=== PATIENT | female | born 1930 | race Caucasian/White ===

== ENCOUNTER 2018-05-20 17:23 | Inpatient (IN) ==
--- NOTE | 2018-05-20 17:52 | XR ---
EXAM DATE: 05/20/2018 5:49 PM EST AGE/SEX: 87 years / Female INDICATIONS: Short of breath. Weakness/Confusion. CLINICAL DATA: This is the patient's initial encounter. Patient reports that signs and symptoms have been present for 1 day and indicates a pain score of Nonresponsive. MEDICAL/SURGICAL HISTORY: . Gallstones. . Hysterectomy. COMPARISON: No prior exams available for comparison. FINDINGS: A single AP view of the chest demonstrates the lungs to be symmetrically aerated without evidence of mass, infiltrate or effusion. The cardiomediastinal contours are unremarkable. Osseous structures a re intact. CONCLUSION: No acute intrathoracic disease. Electronically signed by: Jorge A Rollins MD 05/20/2018 5:50 PM EST
--- NOTE | 2018-05-20 17:57 | ED ---
HPI General Chief complaint: Weakness Stated complaint: Weakness/Confusion Time Seen by Provider: 05/20/18 17:30 Source: patient and EMS Mode of arrival: EMS Limitations: no limitations History of Present Illness HPI Narrative: 87 YO F with PMH of DM presents to the ED for evaluation of 3 day history of weakness. Patient lives at home with her and son. They have a home health nurse who sent her to the ED today. Patient complains of generalized weakness. She denies headache, dizziness, chest pain, palpitations , cough, shortness of breath, abdominal pain, nausea, vomiting, dysuria, back pain, musculoskeletal weakness of the legs. She states that she has not had a bowel movement in the last few days. She denies history of melena, hematochezia. She endorses compliance with her daily medications. Per EMS report the patient's son states that she "may have taken too much medication." Related Data Home Medications Medication Instructions Recorded Confirmed furosemide 40 mg PO DAILY 05/20/18 05/20/18 losartan 50 mg PO DAILY 05/20/18 05/20/18 nadolol 20 mg PO DAILY 05/20/18 05/20/18 phenobarbital 32.4 mg PO DAILY 05/20/18 05/20/18 pioglitazone 15 mg PO DAILY 05/20/18 05/20/18 rifaximin [Xifaxan] 550 mg PO DAILY 05/20/18 05/20/18 simvastatin 20 mg PO QPM 05/20/18 05/20/18 ursodiol 300 mg PO BID 05/20/18 05/20/18 Allergies Allergy/AdvReac Type Severity Reaction Status Date / Time No Known Allergies Allergy Verified 04/04/18 09:00 Review of Systems ROS: all other systems reviewed are negative [facility] Medical History Medical History Diabetes (Acute) High cholesterol (Acute) History of stomach cancer (Acute) Liver disease (Acute) Surgical History Surgical History Hx of left mastectomy (Acute) Social History Social History Substance History: No History of Abuse Second Hand Smoke Exposure: No Smoking Status: Never smoker How Often Do You Have a Drink Containing Alcohol: Never Recent Travel in [facility] within the Last 8 Weeks: No Recent Out of Country Travel within the Last 8 Weeks: No Immunization History Tetanus Immunization: >5 Years Exam Narrative Exam Narrative: GENERAL: Well-nourished, well-developed white female no acute distress. Alert a and O x2. She thinks the year is 1997. SKIN: Focused skin assessment warm/dry. HEAD: Atraumatic. Normocephalic. EYES: Pupils equal and round. No scleral icterus. No injection or drainage. ENT: No nasal bleeding or discharge. Mucous membranes pink and moist. NECK: Trachea midline. No JVD. CARDIOVASCULAR: Regular rate and rhythm. No murmur appreciated. RESPIRATORY: No accessory muscle use. Clear to auscultation. Breath sounds equal bilaterally. GASTROINTESTINAL: Abdomen soft, non-tender, nondistended. Hepatic and splenic margins not palpable. MUSCULOSKELETAL: No obvious deformities. No clubbing. No cyanosis. No edema. NEUROLOGICAL: Awake and alert. No obvious cranial nerve deficits. Motor grossly within normal limits. Normal speech. PSYCHIATRIC: Appropriate mood. Course Initial Documented Vital Signs Temperature 98.3 F 05/20/18 17:32 Last Documented Vital Signs Temperature 98.3 F 05/20/18 17:32 Pulse Rate 70 05/20/18 19:03 Respiratory Rate 20 05/20/18 19:03 Blood Pressure 163/74 H 05/20/18 19:03 Pulse Oximetry 97 05/20/18 19:03 Medical Decision Making JOCELYNE Attestation JOCELYNE supervised visit: Yes Attestation: I, Dr. Nicole, have reviewed the advance practice practitioner's documentation and am in agreement, met with the patient face to face, made the diagnosis, and the medical decision making was done by me. *My assessment and Findings: Patient seen and evaluated with PA. Please see PA notes for further details. Patient is here with general weakness. Increased disorientation. Lab work is indicating significant UTI and there is suspicion of sepsis. Cultures were drawn, IV antibiotics were initiated. Planning to admit for further treatment. MDM Narrative Medical decision making narrative: 87-year-old female presents to the ED for evaluation of weakness, disorientation. Patient is alert, oriented x2. She thinks the year is 1997. Vitals reviewed afebrile on presentation. Physical exam without acute findings. UA with evidence of UTI. Leukocytosis of 11.3. Creatinine 1.05. Patient was administered a dose of Zosyn. I discussed the results of the workup as well as the recommendation for admission. Patient's agreeable. I spoke with Dr. Woodson who agrees to accept the patient to the medicine service. Please see medicine notes for disposition. Medical Screen Exam Complete: Yes Emergency Medical Condition: Yes Differential Diagnosis Differential Diagnosis: UTI versus PNA versus metabolic derangement versus other Lab Data Result diagrams: 05/20/18 18:06 05/20/18 18:06 Lab Results 05/20/18 05/20/18 05/20/18 Range/Units 18:06 18:06 18:06 WBC 4.8 (4.0-11.0) th/mm3 RBC 3.37 L (4.00-5.30) mil/mm3 Hgb 11.3 L (11.6-15.3) gm/dL Hct 32.4 L (35.0-46.0) % MCV 96.2 (80.0-100.0) fL MCH 33.5 (27.0-34.0) pg MCHC 34.8 (32.0-36.0) % RDW 16.1 (11.6-17.2) % Plt Count 79 L (150-450) th/mm3 MPV 10.2 (7.0-11.0) fL Prelim Diff (Auto) Slide review pending Neut % (Auto) 74.6 H (16.0-70.0) % Lymph % (Auto) 13.9 (9.0-44.0) % Gonzales % (Auto) 7.4 (0.0-8.0) % Eos % (Auto) 3.4 (0.0-4.0) % Baso % (Auto) 0.7 (0.0-2.0) % Neut # (Auto) 3.6 (1.8-7.7) th/mm3 Lymph # (Auto) 0.7 L (1.0-4.8) th/mm3 Gonzales # (Auto) 0.4 (0.0-0.9) th/mm3 Eos # (Auto) 0.2 (0.0-0.4) th/mm3 Baso # (Auto) 0.0 (0.0-0.2) th/mm3 WBC Differential . Diff Scan Auto diff confirmed Differential Comment . PT 12.1 H (9.8-11.6) sec INR 1.2 Ratio Sodium 145 (136-145) meq/L Potassium 4.6 (3.5-5.1) meq/L Chloride 111 H (98-107) meq/L Carbon Dioxide 26.4 (21.0-32.0) meq/L Anion Gap 8 (5-15) meq/L BUN 39 H (7-18) mg/dL Creatinine 1.05 H (0.50-1.00) mg/dL Estimated GFR 49 L (>89) mL/min Random Glucose 151 H (74-106) mg/dL Calcium 8.5 (8.5-10.1) mg/dL Magnesium 2.1 (1.5-2.5) mg/dL Total Bilirubin 0.8 (0.2-1.0) mg/dL AST 63 H (15-37) U/L ALT 30 (10-53) U/L Alkaline Phosphatase 178 H (45-117) U/L Troponin I Less than 0.02 L (0.02-0.05) ng/mL Total Protein 7.1 (6.4-8.2) g/dL Albumin 2.7 L (3.4-5.0) g/dL Urine Color (Yellw/Straw) Urine Clarity (Clear) Urine pH (5.0-8.5) Ur Specific Goessel (1.002-1.035) Urine Protein (Neg-Trace) mg/dL Urine Glucose (UA) (Negative) mg/dL Urine Ketones (Negative) mg/dL Urine Occult Blood (Negative) Urine Nitrate (Negative) Urine Bilirubin (Negative) Urine Urobilinogen (Less than 2) mg/dL Ur Leukocyte Esterase (Negative) Urine RBC (0-3) /hpf Urine WBC (0-5) /hpf Urine Bacteria (None) /hpf Urine Mucus (Occasional) /lpf Micro UA Comment Ur Microscopic Review Urine Culture Comments Blood Type Blood Type Recheck Antibody Screen 05/20/18 05/20/18 Range/Units 18:06 18:07 WBC (4.0-11.0) th/mm3 RBC (4.00-5.30) mil/mm3 Hgb (11.6-15.3) gm/dL Hct (35.0-46.0) % MCV (80.0-100.0) fL MCH (27.0-34.0) pg MCHC (32.0-36.0) % RDW (11.6-17.2) % Plt Count (150-450) th/mm3 MPV (7.0-11.0) fL Prelim Diff (Auto) Neut % (Auto) (16.0-70.0) % Lymph % (Auto) (9.0-44.0) % Gonzales % (Auto) (0.0-8.0) % Eos % (Auto) (0.0-4.0) % Baso % (Auto) (0.0-2.0) % Neut # (Auto) (1.8-7.7) th/mm3 Lymph # (Auto) (1.0-4.8) th/mm3 Gonzales # (Auto) (0.0-0.9) th/mm3 Eos # (Auto) (0.0-0.4) th/mm3 Baso # (Auto) (0.0-0.2) th/mm3 WBC Differential Diff Scan Differential Comment PT (9.8-11.6) sec INR Ratio Sodium (136-145) meq/L Potassium (3.5-5.1) meq/L Chloride (98-107) meq/L Carbon Dioxide (21.0-32.0) meq/L Anion Gap (5-15) meq/L BUN (7-18) mg/dL Creatinine (0.50-1.00) mg/dL Estimated GFR (>89) mL/min Random Glucose (74-106) mg/dL Calcium (8.5-10.1) mg/dL Magnesium (1.5-2.5) mg/dL Total Bilirubin (0.2-1.0) mg/dL AST (15-37) U/L ALT (10-53) U/L Alkaline Phosphatase (45-117) U/L Troponin I (0.02-0.05) ng/mL Total Protein (6.4-8.2) g/dL Albumin (3.4-5.0) g/dL Urine Color Yellow (Yellw/Straw) Urine Clarity Turbid H (Clear) Urine pH 7.0 (5.0-8.5) Ur Specific Goessel 1.020 (1.002-1.035) Urine Protein 100 H (Neg-Trace) mg/dL Urine Glucose (UA) Negative (Negative) mg/dL Urine Ketones Negative (Negative) mg/dL Urine Occult Blood Small H (Negative) Urine Nitrate Negative (Negative) Urine Bilirubin Negative (Negative) Urine Urobilinogen 4 or greater (Less than 2) mg/dL Ur Leukocyte Esterase Large H (Negative) Urine RBC 2 (0-3) /hpf Urine WBC (0-5) /hpf Urine Bacteria Occasional H (None) /hpf Urine Mucus Few H (Occasional) /lpf Micro UA Comment Cath-culture ind Ur Microscopic Review Not Reportable Urine Culture Comments Cath-cult indicated Blood Type A Positive Blood Type Recheck Required Antibody Screen Negative Imaging Data Radiologist's impression: Chest X-Ray 05/20/18 17:37 CONCLUSION: No acute intrathoracic disease. Discharge Plan Discharge Disposition Patient Disposition: 30 Still Patient Physicians Team ED Provider: Simone Nicole ED Midlevel Provider: Radha Landeros Primary Care Provider: UNKNOWN, Attending Provider: Hammad Woodson Discharge Interventions Interventions: Vital Signs Last Done: 05/20/18 19:03 Status ED Status: Admitted Observation Patient
[2018-05-20 18:21] LABS: Baso % (Auto) 0.7 % (0.0-2.0); Eos # (Auto) 0.2 th/mm3 (0.0-0.4); Eos % (Auto) 3.4 % (0.0-4.0); Hematocrit 32.4 % (35.0-46.0); Hemoglobin 11.3 gm/dL (11.6-15.3); Lymph # (Auto) 0.7 th/mm3 (1.0-4.8); Lymph % (Auto) 13.9 % (9.0-44.0); Mean Corpuscular HGB Conc 34.8 % (32.0-36.0); Mean Corpuscular Hemoglobin 33.5 pg (27.0-34.0); Mean Corpuscular Volume 96.2 fL (80.0-100.0); Mean Platelet Volume 10.2 fL (7.0-11.0); Mono # (Auto) 0.4 th/mm3 (0.0-0.9); Mono % (Auto) 7.4 % (0.0-8.0); Neut # (Auto) 3.6 th/mm3 (1.8-7.7); Neut % (Auto) 74.6 % (16.0-70.0); Red Blood Count 3.37 mil/mm3 (4.00-5.30); Red Cell Distribution Width 16.1 % (11.6-17.2); White Blood Count 4.8 th/mm3 (4.0-11.0)
[2018-05-20 18:28] LABS: Bacteria,Urine Occasional /hpf; Bilirubin,Urine Negative (Negative); Clarity,Urine Turbid (Clear); Color,Urine Yellow (Yellw/Straw); Glucose,Urine (UA) Negative (Negative); Leukocyte Esterase,Urine Large (Negative); Mucus,Urine Few /lpf (Occasional); Nitrite,Urine Negative (Negative); Urobilinogen,Urine 4 or Greater mg/dL (Less than 2)
[2018-05-20] MEDS ORDERED: Piperacil/Tazo 3.375 GM Premix 50 ML IV.SIG ONE (18:30)
[2018-05-20 18:31] LABS: INR 1.2 Ratio; Prothrombin Time 12.1 sec (9.8-11.6)
[2018-05-20 18:50] LABS: Alkaline Phosphatase 178 U/L (45-117); Total Protein 7.1 g/dL (6.4-8.2)
[2018-05-20 18:55] LABS: Platelet Count 79 th/mm3 (150-450)
[2018-05-20 19:01] LABS: Alanine Aminotransferase 30 U/L (10-53); Albumin 2.7 g/dL (3.4-5.0); Anion Gap 8 meq/L (5-15); Aspartate Aminotransferase 63 U/L (15-37); Blood Urea Nitrogen 39 mg/dL (7-18); Calcium 8.5 mg/dL (8.5-10.1); Carbon Dioxide 26.4 meq/L (21.0-32.0); Chloride 111 meq/L (98-107); Glomerular Filtration Rate 49 mL/min (>89); Glucose,Random 151 mg/dL (74-106); Magnesium 2.1 mg/dL (1.5-2.5); Potassium 4.6 meq/L (3.5-5.1); Sodium 145 meq/L (136-145)
[2018-05-20] MEDS ORDERED: Bisacodyl 10 MG Supp RECTAL PRN (19:46)
[2018-05-20] MEDS: Sod Chloride 0.9% Inj 1,000 ML IV.CONT SCH (21:48)
--- NOTE | 2018-05-21 01:11 | P.HPIM ---
History of Present Illness Primary Care Physician: UNKNOWN History of Present Illness: 87-year-old female with a history of diabetes, hyperlipidemia, stomach cancer status post resection in the past, who presents with a one-week history of progressively worsening nonfocal weakness. She denies any chest pain, shortness breath, nausea vomiting. She denies any pain. Denies any fevers chills. Denies any dysuria. Review of Systems All other systems reviewed negative except as stated in HPI PMFSH - History History Provided By: Patient - Medical History Medical History: Medical History (Last Reviewed 05/21/18 @ 00:59 by Hammad Woodson MD) Diabetes High cholesterol History of stomach cancer Liver disease - Surgical History Surgical History: Surgical History (Last Reviewed 05/21/18 @ 00:59 by Hammad Woodson MD) Hx of left mastectomy - Family History Family History: Family History (Last Updated 05/21/18 @ 01:04 by Hammad Woodson MD) Father Pulmonary embolism Mother Cancer - Tobacco History Second Hand Smoke Exposure: No Smoking Status: Never smoker - Alcohol History How Often Do You Have a Drink Containing Alcohol: Never - Substance Use History Substance History: No History of Abuse - Travel History Recent Travel in the [facility] Within the Last 8 Weeks: No Recent Travel Out of the Country Within the Last 8 Weeks: No - Immunization History Tetanus Immunization: >5 Years Medications and Allergies Active Medications: Active Medications Al Hydroxide/Mg Hydroxide (Milk Of Magnesia Liq) 30 ml PO Q12H PRN PRN Reason: Mild Constipation Bisacodyl (Dulcolax Supp) 10 mg RECTAL DAILY PRN PRN Reason: SEVERE CONSITIPATION Ceftriaxone Sodium 1,000 mg/ (Sodium Chloride) 100 mls @ 200 mls/hr IV.SIG Q24H [facility] Last Infusion: 05/20/18 23:10 Dose: Infused Sodium Chloride (Ns Inj) 1,000 mls @ 60 mls/hr IV.CONT .[id number] [facility] Last Admin: 05/20/18 21:48 Dose: 60 mls/hr Lactulose (Lactulose Liq) 30 ml PO DAILY PRN PRN Reason: SEVERE CONSITIPATION Nadolol (Corgard) 20 mg PO DAILY [facility] Phenobarbital (Phenobarbital) 32.4 mg PO DAILY [facility] Pravastatin Sodium (Pravachol) 20 mg PO QPM [facility] Rifaximin (Xifaxan) 550 mg PO DAILY [facility] Sennosides (Senokot) 17.2 mg PO Q12H PRN PRN Reason: Moderate Constipation Ursodiol (Actigall) 300 mg PO BID [facility] Last Admin: 05/20/18 22:40 Dose: 300 mg Allergies Allergy/AdvReac Type Severity Reaction Status Date / Time No Known Allergies Allergy Verified 04/04/18 09:00 Home Medications Medication Instructions Recorded Confirmed Type furosemide 40 mg PO DAILY 05/20/18 05/20/18 History losartan 50 mg PO DAILY 05/20/18 05/20/18 History nadolol 20 mg PO DAILY 05/20/18 05/20/18 History phenobarbital 32.4 mg PO DAILY 05/20/18 05/20/18 History pioglitazone 15 mg PO DAILY 05/20/18 05/20/18 History rifaximin [Xifaxan] 550 mg PO DAILY 05/20/18 05/20/18 History simvastatin 20 mg PO QPM 05/20/18 05/20/18 History ursodiol 300 mg PO BID 05/20/18 05/20/18 History Exam Vital signs: Vital Signs 05/20/18 17:32 05/20/18 17:35 05/20/18 17:40 Temperature 98.3 F Pulse Rate 70 Respiratory Rate 16 Blood Pressure 197/83 H Pulse Oximetry 90 L 94 L 05/20/18 18:40 05/20/18 19:03 05/20/18 20:00 Temperature 98.3 F Pulse Rate 65 70 70 Respiratory Rate 16 20 16 Blood Pressure 163/70 H 163/74 H 143/63 H Pulse Oximetry 99 97 98 05/20/18 23:52 Temperature 98.0 F Pulse Rate 70 Respiratory Rate 16 Blood Pressure 171/72 H Pulse Oximetry 96 Intake & Output 05/20/18 05/20/18 05/21/18 06:59 18:59 06:59 Intake Total 150 / 150 Balance 150 / 150 Weight 72.575 kg 72.575 kg Intake: IV 150 / 150 Zosyn 3.375 GM Premix 50 ML @ 50 / 50 100 mls/hr IV.SIG ONCE ONE Rx#: [id number] Rocephin Inj 1,000 MG In NS Inj 100 / 100 100 ML @ 200 mls/hr IV.SIG Q24H [facility] Rx#:[id number] Other: Weight On Admission 72.575 kg Narrative: GENERAL: Patient lying in bed. Appears comfortable. Alert and oriented x3. SKIN: Warm and dry. HEAD: Atraumatic. Normocephalic. EYES: Pupils equal and round. No scleral icterus. No injection or drainage. ENT: No nasal bleeding or discharge. Mucous membranes pink and moist. NECK: Trachea midline. No JVD. CARDIOVASCULAR: Regular rate and rhythm. RESPIRATORY: No accessory muscle use. Clear to auscultation. Breath sounds equal bilaterally. GASTROINTESTINAL: Abdomen soft, non-tender, nondistended. Hepatic and splenic margins not palpable. MUSCULOSKELETAL: Extremities without clubbing, cyanosis, or edema. No obvious deformities. NEUROLOGICAL: Awake and alert. No obvious cranial nerve deficits. Motor grossly within normal limits. 4 out of 5 muscle strength in the arms and legs. Symmetric. Normal speech. PSYCHIATRIC: Appropriate mood and affect; insight and judgment normal. Results - Labs CBC & Chem 7: 05/20/18 18:06 05/20/18 18:06 Labs: Short CBC 05/20/18 Range/Units 18:06 WBC 4.8 (4.0-11.0) th/mm3 Hgb 11.3 L (11.6-15.3) gm/dL Hct 32.4 L (35.0-46.0) % Plt Count 79 L (150-450) th/mm3 BMP 05/20/18 18:06 Sodium 145 Potassium 4.6 Chloride 111 H Carbon Dioxide 26.4 BUN 39 H Creatinine 1.05 H Calcium 8.5 Cardiac Enzymes 05/20/18 Range/Units 18:06 Troponin I Less than 0.02 L (0.02-0.05) ng/mL Liver Function 05/20/18 Range/Units 18:06 Total Bilirubin 0.8 (0.2-1.0) mg/dL AST 63 H (15-37) U/L ALT 30 (10-53) U/L Alkaline Phosphatase 178 H (45-117) U/L Albumin 2.7 L (3.4-5.0) g/dL Urine 05/20/18 Range/Units 18:07 Urine Color Yellow (Yellw/Straw) Urine Clarity Turbid H (Clear) Urine pH 7.0 (5.0-8.5) Ur Specific [place] 1.020 (1.002-1.035) Urine Protein 100 H (Neg-Trace) mg/dL Urine Glucose (UA) Negative (Negative) mg/dL - Imaging Impressions Chest X-Ray 05/20/18 17:37 CONCLUSION: No acute intrathoracic disease. Caprini VTE Risk Assessment Caprini VTE Risk Assessment: Moderate/High Risk (score >= 2) Caprini Risk Assessment Model: Point Value = 1 Point Value = 2 Point Value = 3 Point Value = 5 Age 41-60 Minor surgery BMI > 25 kg/m2 Swollen legs Varicose veins or History of unexplained or recurrent spontaneous Oral contraceptives or hormone replacement Sepsis (< 1 month) Serious lung disease, including pneumonia (< 1 month) Abnormal pulmonary function Acute myocardial infarction Congestive heart failure (< 1 month) History of inflammatory bowel disease Medical patient at bed rest Age 61-74 Arthroscopic surgery Major open surgery (> 45 min) Laparoscopic surgery (> 45 min) Malignancy Confined to bed (> 72 hours) Immobilizing plaster cast Central venous access Age >= 75 History of VTE Family history of VTE Factor V Leiden Prothrombin [id number] Lupus anticoagulant Anticardiolipin antibodies Elevated serum homocysteine Heparin-induced thrombocytopenia Other congenital or acquired thrombophilia Stroke (< 1 month) Elective arthroplasty Hip, pelvis, or leg fracture Acute spinal cord injury (< 1 month) Prophylaxis Regimen: Total Risk Factor Score Risk Level Prophylaxis Regimen 0-1 Low Early ambulation 2 Moderate Order ONE of the following: *Sequential Compression Device (SCD) *Heparin 5000 units SQ BID 3-4 Higher Order ONE of the following medications: *Heparin 5000 units SQ TID *Enoxaparin/Lovenox 40 mg SQ daily (WT < 150 kg, CrCl > 30 mL/min) *Enoxaparin/Lovenox 30 mg SQ daily (WT < 150 kg, CrCl > 10-29 mL/min) *Enoxaparin/Lovenox 30 mg SQ BID (WT < 150 kg, CrCl > 30 mL/min) AND/OR *Sequential Compression Device (SCD) 5 or more Highest Order ONE of the following medications: *Heparin 5000 units SQ TID (Preferred with Epidurals) *Enoxaparin/Lovenox 40 mg SQ daily (WT < 150 kg, CrCl > 30 mL/min) *Enoxaparin/Lovenox 30 mg SQ daily (WT < 150 kg, CrCl > 10-29 mL/min) *Enoxaparin/Lovenox 30 mg SQ BID (WT < 150 kg, CrCl > 30 mL/min) AND *Sequential Compression Device (SCD) Assessment and Plan - Plan //Generalized weakness -Nonfocal. Likely secondary to UTI. Due to history of cirrhosis, ammonia level pending. Will also check phenobarbital level. //Acute urinary tract infection Urinalysis grossly positive. Start on antibiotics. Follow-up cultures. //Dehydration. BUN 39, creatinine 1.0. Likely secondary to UTI. IV antibiotics. 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 Appears to be chronic, actually better than baseline. Monitor for signs of bleeding. Avoid anticoagulation. SCDs only. //Diabetes mellitus. Insulin sliding scale and diabetic diet. //History of cirrhosis. Chronic. Continue home medications. Discussed Condition With: Patient, nurse, ED physician. H&P: Quality - VTE Deep Vein Thrombosis/Pulmonary Embolism Present on Admission: No
[2018-05-21 09:50] LABS: Baso % (Auto) 0.6 % (0.0-2.0); Eos # (Auto) 0.2 th/mm3 (0.0-0.4); Eos % (Auto) 4.8 % (0.0-4.0); Hematocrit 31.3 % (35.0-46.0); Hemoglobin 10.7 gm/dL (11.6-15.3); Lymph # (Auto) 0.5 th/mm3 (1.0-4.8); Lymph % (Auto) 14.4 % (9.0-44.0); Mean Corpuscular HGB Conc 34.2 % (32.0-36.0); Mean Corpuscular Volume 96.6 fL (80.0-100.0); Mono # (Auto) 0.2 th/mm3 (0.0-0.9); Neut # (Auto) 2.4 th/mm3 (1.8-7.7); Neut % (Auto) 73.2 % (16.0-70.0); Platelet Count 51 th/mm3 (150-450); Red Blood Count 3.24 mil/mm3 (4.00-5.30); Red Cell Distribution Width 15.8 % (11.6-17.2); White Blood Count 3.3 th/mm3 (4.0-11.0)
[2018-05-21 10:17] LABS: Albumin 2.6 g/dL (3.4-5.0); Anion Gap 10 meq/L (5-15); Aspartate Aminotransferase 43 U/L (15-37); Blood Urea Nitrogen 32 mg/dL (7-18); Calcium 8.3 mg/dL (8.5-10.1); Carbon Dioxide 23.1 meq/L (21.0-32.0); Chloride 113 meq/L (98-107); Glomerular Filtration Rate 67 mL/min (>89); Glucose,Random 109 mg/dL (74-106); Potassium 4.1 meq/L (3.5-5.1); Sodium 146 meq/L (136-145)
[2018-05-21 10:23] LABS: Platelet Morphology Normal (Normal)
[2018-05-21 10:24] LABS: Alanine Aminotransferase 27 U/L (10-53); Alkaline Phosphatase 153 U/L (45-117); Total Protein 6.6 g/dL (6.4-8.2)
[2018-05-21] MEDS: rifAXIMin 550 MG Tablet PO SCH (11:03)
[2018-05-21] MEDS: Nadolol 20 MG Tablet PO SCH (11:03)
[2018-05-21] MEDS ORDERED: Sodium Chloride 0.45 % Inj 1,000 ML IV.CONT SCH (15:00)
--- NOTE | 2018-05-21 16:36 | ECG ---
Date Performed: 05/20/2018 Time Performed: 18:17:17 PTAGE: 87 years EKG: Sinus rhythm Since previous tracing, no significant change noted NORMAL ECG PREVIOUS TRACING : 09/24/2015 22.21 DOCTOR: Mira Diop Interpretating Date/Time 05/21/2018 16:36:30
[2018-05-21] MEDS ORDERED: Vancomycin Consult Pharmacy OTHER PRN (19:54)
[2018-05-21] MEDS: Sod Chloride 0.9% Inj 1,000 ML IV.CONT SCH (20:26)
[2018-05-21] MEDS ORDERED: Vancomycin Inj 1,250 MG in Sodium Chlor 0.9% Inj 250 ML IV.SIG ONE (22:00)
--- NOTE | 2018-05-22 08:36 | P.DCO ---
- Diagnosis (1) UTI (urinary tract infection) Status: Acute (2) HTN (hypertension) Status: Acute (3) Physical deconditioning Status: Acute - Physical Therapy Order: Evaluate and treat, Improve ambulation, Strength and gait training - Home Health Nursing Order: Medical education, Medication education-adverse effect - Case Management Consult Yes - Certification I have seen patient Luis Carlos Whitehead on 05/22/18. My clinical findings support the need for the requested home health care services because: Deconditioned with increased weakness I certify that my clinical findings support that this patient is homebound because: Unsteady gait/balance
--- NOTE | 2018-05-22 08:36 | P.PNIM ---
Subjective Interval history: Patient reports she is feeling better today except for persistent weakness. Discussed with family at bedside. Physical Exam Vital signs: Vital Signs 05/21/18 08:52 05/21/18 12:00 05/21/18 15:49 Temperature 97.7 F 97.7 F Pulse Rate 59 L 58 L Respiratory Rate 16 20 Blood Pressure 155/66 H 152/63 H Pulse Oximetry 96 95 97 05/21/18 19:38 05/21/18 22:40 05/21/18 23:30 Temperature 98.1 F 98.4 F Pulse Rate 63 66 Respiratory Rate 16 17 Blood Pressure 158/83 H 141/92 H Pulse Oximetry 97 95 97 05/22/18 03:33 05/22/18 07:41 Temperature 98.0 F 98.3 F Pulse Rate 70 72 Respiratory Rate 18 20 Blood Pressure 164/74 H 173/72 H Pulse Oximetry 96 95 Intake & Output 05/21/18 05/22/18 05/22/18 18:59 06:59 18:59 Intake Total 1000 / 1000 362.5 / 362.5 Balance 1000 / 1000 362.5 / 362.5 Intake: IV 1000 / 1000 362.5 / 362.5 NS Inj 1,000 ML @ 60 mls/hr IV. 1000 / 1000 CONT .[id number] [facility] Rx#:[id number] Vancomycin Inj 1,250 MG In NS 262.5 / 262.5 Inj 250 ML @ 250 mls/hr IV.SIG ONCE ONE Rx#:[id number] Rocephin Inj 1,000 MG In NS Inj 100 / 100 100 ML @ 200 mls/hr IV.SIG Q24H [facility] Rx#:[id number] Narrative: GENERAL: Elderly female in no acute distress CARDIOVASCULAR: Normal rate and regular rhythm without murmurs, gallops, or rubs. RESPIRATORY: Good respiratory efforts. Diminished breath sounds at the bases otherwise clear to auscultation bilaterally. GASTROINTESTINAL: Abdomen soft, non-tender, non-distended. Normal active bowel sounds MUSCULOSKELETAL: Trace bilateral lower extremity edema NEURO: Alert & Oriented x4 to person, place, time, situation. Moves all ext x4 PSYCH: Appropriate mood and affect. - Urinary Catheter Management Straight Cath placed during this visit: yes, but has since been removed by the nurse Reason for continuing: Not indwelling catheter Insertion date: 11/08/18 Insertion time: 18:00 Removal date: 05/20/18 Removal time: 18:01 Results - Labs CBC & Chem 7: 05/21/18 08:58 05/21/18 08:58 Laboratory Results - last 24 hr 05/20/18 05/21/18 05/21/18 18:07 08:57 08:58 WBC 3.3 L RBC 3.24 L Hgb 10.7 L Hct 31.3 L MCV 96.6 MCH 33.0 MCHC 34.2 RDW 15.8 Plt Count 51 L D MPV 9.0 Prelim Diff (Auto) Slide review pending Neut % (Auto) 73.2 H Lymph % (Auto) 14.4 [place] % (Auto) 7.0 Eos % (Auto) 4.8 H Baso % (Auto) 0.6 Neut # (Auto) 2.4 Lymph # (Auto) 0.5 L [place] # (Auto) 0.2 Eos # (Auto) 0.2 Baso # (Auto) 0.0 WBC Differential . Diff Scan Auto diff confirmed Differential Comment . Platelet Estimate Low L Platelet Morphology Normal Sodium Potassium Chloride Carbon Dioxide Anion Gap BUN Creatinine Estimated GFR POC Glucose 111 H Random Glucose Calcium Total Bilirubin AST ALT Alkaline Phosphatase Total Protein Albumin Urine Color Yellow Urine Clarity Turbid H Urine pH 7.0 Ur Specific [place] 1.020 Urine Protein 100 H Urine Glucose (UA) Negative Urine Ketones Negative Urine Occult Blood Small H Urine Nitrate Negative Urine Bilirubin Negative Urine Urobilinogen 4 or greater Ur Leukocyte Esterase Large H Urine RBC 2 Urine WBC Urine Bacteria Occasional H Urine Mucus Few H Micro UA Comment Cath-culture ind Urine Culture Comments Cath-cult indicated 05/21/18 05/21/18 05/22/18 08:58 12:17 07:44 WBC RBC Hgb Hct MCV MCH MCHC RDW Plt Count MPV Prelim Diff (Auto) Neut % (Auto) Lymph % (Auto) [place] % (Auto) Eos % (Auto) Baso % (Auto) Neut # (Auto) Lymph # (Auto) [place] # (Auto) Eos # (Auto) Baso # (Auto) WBC Differential Diff Scan Differential Comment Platelet Estimate Platelet Morphology Sodium 146 H Potassium 4.1 Chloride 113 H Carbon Dioxide 23.1 Anion Gap 10 BUN 32 H Creatinine 0.81 Estimated GFR 67 L POC Glucose 142 H 97 Random Glucose 109 H Calcium 8.3 L Total Bilirubin 0.9 AST 43 H ALT 27 Alkaline Phosphatase 153 H Total Protein 6.6 Albumin 2.6 L Urine Color Urine Clarity Urine pH Ur Specific [place] Urine Protein Urine Glucose (UA) Urine Ketones Urine Occult Blood Urine Nitrate Urine Bilirubin Urine Urobilinogen Ur Leukocyte Esterase Urine RBC Urine WBC Urine Bacteria Urine Mucus Micro UA Comment Urine Culture Comments Microbiology 05/20/18 18:07 Catheterized Urine Urine Culture - Final Proteus mirabilis 05/20/18 17:50 Blood - Peripheral Aerobic Blood Culture - Preliminary No growth in 1 day 05/20/18 17:50 Blood - Peripheral Anaerobic Blood Culture - Preliminary gram positive cocci 05/20/18 17:50 Blood - Peripheral Aerobic Blood Culture - Preliminary No growth in 1 day 05/20/18 17:50 Blood - Peripheral Anaerobic Blood Culture - Preliminary No growth in 1 day Assessment and Plan - Assessment (1) UTI (urinary tract infection) Code(s): N39.0 - Urinary tract infection, site not specified Status: Acute (2) HTN (hypertension) Code(s): I10 - Essential (primary) hypertension Status: Acute (3) Physical deconditioning Code(s): R53.81 - Other malaise Status: Acute - Plan 87-year-old female presented with worsening generalized weakness. Likely secondary to UTI. Generalized weakness -Nonfocal. Likely secondary to UTI. Acute urinary tract infection Urinalysis grossly positive. -Urine culture grew Proteus. - Continue Rocephin. Plan to transition to oral cefuroxime tomorrow. Hypoxemia: Mild. Family reports she has been having issues with fluid overload secondary to liver cirrhosis. She is on Lasix but became dehydrated when she stopped drinking fluid. - Patient has been rehydrated. Concern she is not retaining fluid. - We will give her 1 dose of IV Lasix and resume home Lasix at half the dose 20 mg daily. -Incentive spirometry. Wean off oxygen as tolerated. Dehydration. Resolved with IV fluid. Chronic thrombocytopenia: Likely secondary to liver cirrhosis. Stable. No signs of active bleeding. Continue to monitor. Avoid anticoagulation. SCDs only. Diabetes mellitus. Insulin sliding scale and diabetic diet. History of cirrhosis. Chronic. Continue home medications. Discharge Planning: May need home health versus SNF. PT to reevaluate. Unclear if her will be able to care for her at home as he is in his 90s.
[2018-05-22] MEDS: Nadolol 20 MG Tablet PO SCH (09:49)
[2018-05-22] MEDS: rifAXIMin 550 MG Tablet PO SCH (11:48)
[2018-05-22] MEDS ORDERED: Vancomycin Inj 1,250 MG in Sodium Chlor 0.9% Inj 250 ML IV.SIG ONE (16:00)
[2018-05-22] MEDS: Vancomycin Inj 1,250 MG in Sodium Chlor 0.9% Inj 250 ML IV.SIG SCH (18:00)
[2018-05-22 20:00] LABS: Potassium 4.2 meq/L (3.5-5.1)
[2018-05-23] MEDS: rifAXIMin 550 MG Tablet PO SCH (09:55)
[2018-05-23] MEDS: Furosemide 20 MG Tablet PO SCH (09:56)
[2018-05-23] MEDS: Nadolol 20 MG Tablet PO SCH (09:57)
[2018-05-23 12:27] LABS: Hematocrit 32.6 % (35.0-46.0); Hemoglobin 11.5 gm/dL (11.6-15.3); Mean Corpuscular HGB Conc 35.3 % (32.0-36.0); Mean Corpuscular Hemoglobin 33.8 pg (27.0-34.0); Mean Corpuscular Volume 95.7 fL (80.0-100.0); Mean Platelet Volume 9.4 fL (7.0-11.0); Platelet Count 65 th/mm3 (150-450); White Blood Count 3.9 th/mm3 (4.0-11.0)
[2018-05-23 12:54] LABS: Calcium 7.8 mg/dL (8.5-10.1); Carbon Dioxide 26.8 meq/L (21.0-32.0); Potassium 4.1 meq/L (3.5-5.1)
--- NOTE | 2018-05-23 16:02 | P.PNIM ---
Subjective Interval history: Patient has not been able to get out of bed. Discussed with nursing and PT. She is a maximum assist. She reports severe weakness and right knee pain. She states her osteoarthritis flares up from time to time and she normally use topical pain reliever but does not remember the name Physical Exam Vital signs: Vital Signs 05/22/18 19:20 05/22/18 20:00 05/23/18 00:00 Temperature 98.2 F 98.0 F Pulse Rate 68 75 Respiratory Rate 17 18 Blood Pressure 134/78 159/70 H Pulse Oximetry 98 97 94 L 05/23/18 07:49 05/23/18 09:03 05/23/18 11:52 Temperature 98.0 F 98.3 F Pulse Rate 77 66 Respiratory Rate 12 20 Blood Pressure 155/70 H 150/65 H Pulse Oximetry 91 L 92 L 95 05/23/18 15:45 Temperature 99.0 F Pulse Rate 76 Respiratory Rate 16 Blood Pressure 169/70 H Pulse Oximetry 96 Intake & Output 05/22/18 05/23/18 05/23/18 18:59 06:59 18:59 Intake Total 362.5 / 362.5 Output Total 1300 / 1300 Balance -1300 / -1300 362.5 / 362.5 Intake: IV 362.5 / 362.5 Vancomycin Inj 1,250 MG In NS 262.5 / 262.5 Inj 250 ML @ 250 mls/hr IV.SIG Q24H [facility] Rx#:[id number] Rocephin Inj 1,000 MG In NS Inj 100 / 100 100 ML @ 200 mls/hr IV.SIG Q24H [facility] Rx#:[id number] Output: Urine 1300 / 1300 Other: # Voids 1 Date of Last Bowel Movement 05/20/18 05/23/18 Narrative: GENERAL: Elderly female in no acute distress. Very frail. CARDIOVASCULAR: Normal rate and regular rhythm without murmurs, gallops, or rubs. RESPIRATORY: Good respiratory efforts. Diminished breath sounds at the bases otherwise clear to auscultation bilaterally. GASTROINTESTINAL: Abdomen soft, non-tender, non-distended. Normal active bowel sounds MUSCULOSKELETAL: Right knee diffusely tender to palpation, limited range of motion due to pain. Trace bilateral lower extremity edema NEURO: Alert & Oriented x4 to person, place, time, situation. PSYCH: Appropriate mood and affect. - Urinary Catheter Management Straight Cath placed during this visit: yes, but has since been removed by the nurse Reason for continuing: Not indwelling catheter Insertion date: 05/20/18 Insertion time: 18:00 Removal date: 05/20/18 Removal time: 18:01 Results - Labs CBC & Chem 7: 05/23/18 11:30 05/23/18 11:30 Laboratory Results - last 24 hr 05/22/18 05/22/18 05/23/18 16:57 19:12 11:30 WBC 3.9 L RBC 3.40 L Hgb 11.5 L Hct 32.6 L MCV 95.7 MCH 33.8 MCHC 35.3 RDW 16.0 Plt Count 65 L MPV 9.4 Sodium 143 Potassium 4.2 Chloride 110 H Carbon Dioxide 25.0 Anion Gap 8 BUN 22 H Creatinine 0.88 Estimated GFR 61 L POC Glucose 128 H Random Glucose 105 Calcium 8.0 L 05/23/18 11:30 WBC RBC Hgb Hct MCV MCH MCHC RDW Plt Count MPV Sodium 139 Potassium 4.1 Chloride 106 Carbon Dioxide 26.8 Anion Gap 6 BUN 23 H Creatinine 0.95 Estimated GFR 56 L POC Glucose Random Glucose 164 H Calcium 7.8 L Microbiology 05/20/18 17:50 Blood - Peripheral Aerobic Blood Culture - Preliminary No growth in 3 days 05/20/18 17:50 Blood - Peripheral Anaerobic Blood Culture - Final Staphylococcus epidermidis 05/20/18 17:50 Blood - Peripheral Aerobic Blood Culture - Preliminary No growth in 3 days 05/20/18 17:50 Blood - Peripheral Anaerobic Blood Culture - Preliminary No growth in 3 days Assessment and Plan - Assessment (1) UTI (urinary tract infection) Code(s): N39.0 - Urinary tract infection, site not specified Status: Acute (2) HTN (hypertension) Code(s): I10 - Essential (primary) hypertension Status: Acute (3) Physical deconditioning Code(s): R53.81 - Other malaise Status: Acute - Plan 87-year-old female presented with worsening generalized weakness. Likely secondary to UTI. Generalized weakness/severe physical deconditioning -Nonfocal. Likely secondary to UTI. -Patient will require rehabilitation at a detention facility. Admit to inpatient. She needs 3 midnight stay per Medicare rules. Acute urinary tract infection Urinalysis grossly positive. -Urine culture grew Proteus. - Transition to oral cefuroxime Hypoxemia: Resolved. Family reports she has been having issues with fluid overload secondary to liver cirrhosis. She is on Lasix but became dehydrated when she stopped drinking fluid. -Continue home dose Lasix at half the dose 20 mg daily. -Incentive spirometry. Oxygen has been weaned off. Dehydration. Resolved with IV fluid. Chronic thrombocytopenia: Likely secondary to liver cirrhosis. Stable. No signs of active bleeding. Continue to monitor. Avoid anticoagulation. SCDs only. Diabetes mellitus. Insulin sliding scale and diabetic diet. History of cirrhosis. Chronic. Continue home medications. Discharge Planning: Patient remains severely deconditioned and unable to ambulate. Requires maximal assistance. She needs rehabilitation at a detention facility. Admit to inpatient. Case management following for placement.
[2018-05-23] MEDS: Vancomycin Inj 1,250 MG in Sodium Chlor 0.9% Inj 250 ML IV.SIG SCH (18:25)
[2018-05-24] MEDS: rifAXIMin 550 MG Tablet PO SCH (09:28)
[2018-05-24] MEDS: Nadolol 20 MG Tablet PO SCH (09:28)
[2018-05-24] MEDS: Furosemide 20 MG Tablet PO SCH (09:28)
--- NOTE | 2018-05-24 15:12 | P.PNIM ---
Subjective Interval history: Patient reports persistent right knee pain and weakness. She reports that the pain is similar to her osteoarthritis flare and she usually gets a steroid injection. Physical Exam Vital signs: Vital Signs 05/23/18 15:45 05/23/18 19:58 05/24/18 00:00 Temperature 99.0 F 98.5 F 97.8 F Pulse Rate 76 71 62 Respiratory Rate 16 16 16 Blood Pressure 169/70 H 150/65 H 147/66 H Pulse Oximetry 96 93 L 94 L 05/24/18 04:00 05/24/18 07:13 05/24/18 09:32 Temperature 98.2 F 98.0 F Pulse Rate 67 71 Respiratory Rate 16 16 16 Blood Pressure 162/67 H 124/75 Pulse Oximetry 99 91 L 05/24/18 11:49 Temperature 97.8 F Pulse Rate 63 Respiratory Rate 16 Blood Pressure 154/65 H Pulse Oximetry 92 L Intake & Output 05/23/18 05/24/18 05/24/18 18:59 06:59 18:59 Intake Total 262.5 / 262.5 500 / 500 Output Total 100 / 100 100 / 100 Balance 162.5 / 162.5 400 / 400 Intake: IV 262.5 / 262.5 Vancomycin Inj 1,250 MG In NS 262.5 / 262.5 Inj 250 ML @ 250 mls/hr IV.SIG Q24H [facility] Rx#:[id number] Oral 500 / 500 Output: Urine 100 / 100 100 / 100 Other: Date of Last Bowel Movement 05/23/18 05/23/18 # Bowel Movements 3 Narrative: GENERAL: Elderly female in no acute distress. Very frail. CARDIOVASCULAR: Normal rate and regular rhythm without murmurs, gallops, or rubs. RESPIRATORY: Good respiratory efforts. Diminished breath sounds at the bases otherwise clear to auscultation bilaterally. GASTROINTESTINAL: Abdomen soft, non-tender, non-distended. Normal active bowel sounds MUSCULOSKELETAL: Right knee diffusely tender to palpation, limited range of motion due to pain. Mild effusion. Trace bilateral lower extremity edema NEURO: Alert & Oriented x4 to person, place, time, situation. PSYCH: Appropriate mood and affect. - Urinary Catheter Management Straight Cath placed during this visit: yes, but has since been removed by the nurse Reason for continuing: Not indwelling catheter Insertion date: 05/20/18 Insertion time: 18:00 Removal date: 05/20/18 Removal time: 18:01 Results - Labs CBC & Chem 7: 05/23/18 11:30 05/23/18 11:30 Laboratory Results - last 24 hr 05/23/18 21:53 POC Glucose 131 H Microbiology 05/20/18 17:50 Blood - Peripheral Aerobic Blood Culture - Preliminary No growth in 4 days 05/20/18 17:50 Blood - Peripheral Anaerobic Blood Culture - Preliminary No growth in 4 days 05/20/18 17:50 Blood - Peripheral Aerobic Blood Culture - Preliminary No growth in 4 days 05/20/18 17:50 Blood - Peripheral Anaerobic Blood Culture - Final Staphylococcus epidermidis Assessment and Plan - Assessment (1) UTI (urinary tract infection) Code(s): N39.0 - Urinary tract infection, site not specified Status: Acute (2) HTN (hypertension) Code(s): I10 - Essential (primary) hypertension Status: Acute (3) Physical deconditioning Code(s): R53.81 - Other malaise Status: Acute - Plan 87-year-old female presented with worsening generalized weakness. Likely secondary to UTI. Generalized weakness/severe physical deconditioning -Nonfocal. Likely secondary to UTI and comorbid conditions below -Patient will require short term rehabilitation at a retirement facility. She needs 3 midnight stay per Medicare rules. Acute urinary tract infection Urinalysis grossly positive. -Urine culture grew Proteus. -Completed treatment with Zosyn and cefuroxime. Hypoxemia: Resolved. Family reports she has been having issues with fluid overload secondary to liver cirrhosis. She is on Lasix but became dehydrated when she stopped drinking fluid. -Continue home dose Lasix at half the dose 20 mg daily. -Incentive spirometry. Oxygen has been weaned off. Osteoarthritis flare: Right knee - Will give short course of oral steroid - Change pain medication to Percocet - Encouraged the patient to participate with PT Dehydration. Resolved with IV fluid. Chronic thrombocytopenia: Likely secondary to liver cirrhosis. Stable. No signs of active bleeding. Continue to monitor. Avoid anticoagulation. SCDs only. Diabetes mellitus. Insulin sliding scale and diabetic diet. History of cirrhosis. Chronic. Continue home medications. Continue rifaximin, Lasix. Discharge Planning: Patient remains severely deconditioned and unable to ambulate. Requires maximal assistance. She needs rehabilitation at a retirement facility. Case management following for placement.
[2018-05-24] MEDS ORDERED: Dextrose 50% in Water 50 ML Vial IV.PUSH PRN (16:44)
[2018-05-24] MEDS: predniSONE 20 MG Tablet PO SCH (16:59)
[2018-05-24] MEDS ORDERED: Pharmacy Ordered Lab Info OTHER ONE (17:00)
[2018-05-24] MEDS: Insulin NovoLOG Aspart Correctional Sugar Inj SQ SCH ×2 (17:01→21:37)
[2018-05-25] MEDS: Insulin NovoLOG Aspart Correctional Sugar Inj SQ SCH ×4 (08:03→21:54)
[2018-05-25] MEDS: Furosemide 20 MG Tablet PO SCH (09:40)
[2018-05-25] MEDS: rifAXIMin 550 MG Tablet PO SCH (09:40)
[2018-05-25] MEDS: predniSONE 20 MG Tablet PO SCH (09:40)
[2018-05-25] MEDS: Nadolol 20 MG Tablet PO SCH (09:41)
--- NOTE | 2018-05-25 10:33 | P.PNIM ---
Subjective Interval history: Patient reports she is feeling okay today. She is unable to tell if right knee pain is better. She has not been up with physical therapy yet. Physical Exam Vital signs: Vital Signs 05/24/18 11:49 05/24/18 15:21 05/24/18 21:15 Temperature 97.8 F 98.4 F Pulse Rate 63 71 70 Respiratory Rate 16 16 19 Blood Pressure 154/65 H 179/74 H 124/53 L Pulse Oximetry 92 L 90 L 93 L 05/25/18 02:38 05/25/18 02:41 05/25/18 04:00 Temperature 98.9 F Pulse Rate 70 67 Respiratory Rate 17 18 Blood Pressure 115/56 L 113/56 L Pulse Oximetry 95 95 95 05/25/18 08:23 05/25/18 08:41 Temperature 98.2 F Pulse Rate 66 Respiratory Rate 20 Blood Pressure 122/56 L Pulse Oximetry 95 94 L Intake & Output 05/24/18 05/25/18 05/25/18 18:59 06:59 18:59 Intake Total 620 / 620 Output Total 250 / 250 Balance 370 / 370 Intake: Oral 620 / 620 Output: Urine 100 / 100 Urine/Stool Mix 150 / 150 Other: Date of Last Bowel Movement 05/24/18 05/24/18 # Bowel Movements 1 2 Narrative: GENERAL: Elderly female in no acute distress. Very frail. CARDIOVASCULAR: Normal rate and regular rhythm without murmurs, gallops, or rubs. RESPIRATORY: Good respiratory efforts. Diminished breath sounds at the bases otherwise clear to auscultation bilaterally. GASTROINTESTINAL: Abdomen soft, non-tender, non-distended. Normal active bowel sounds MUSCULOSKELETAL: Right knee diffusely tender to palpation, limited range of motion due to pain. Effusion seems to have resolved. Trace bilateral lower extremity edema NEURO: Alert & Oriented x4 to person, place, time, situation. PSYCH: Appropriate mood and affect. - Urinary Catheter Management Straight Cath placed during this visit: yes, but has since been removed by the nurse Reason for continuing: Not indwelling catheter Insertion date: 05/20/18 Insertion time: 18:00 Removal date: 05/20/18 Removal time: 18:01 Results - Labs CBC & Chem 7: 05/23/18 11:30 05/25/18 10:51 Laboratory Results - last 24 hr 05/24/18 05/24/18 05/24/18 16:47 17:01 21:18 POC Glucose 134 H 167 H Vancomycin Trough 23.9 H 05/25/18 08:02 POC Glucose 146 H Vancomycin Trough Microbiology 05/20/18 17:50 Blood - Peripheral Aerobic Blood Culture - Preliminary No growth in 4 days 05/20/18 17:50 Blood - Peripheral Anaerobic Blood Culture - Preliminary No growth in 4 days 05/20/18 17:50 Blood - Peripheral Aerobic Blood Culture - Preliminary No growth in 4 days 05/20/18 17:50 Blood - Peripheral Anaerobic Blood Culture - Final Staphylococcus epidermidis Assessment and Plan - Assessment (1) UTI (urinary tract infection) Code(s): N39.0 - Urinary tract infection, site not specified Status: Acute (2) HTN (hypertension) Code(s): I10 - Essential (primary) hypertension Status: Acute (3) Physical deconditioning Code(s): R53.81 - Other malaise Status: Acute - Plan 87-year-old female presented with worsening generalized weakness. Likely secondary to UTI. Generalized weakness/severe physical deconditioning -Nonfocal. Likely secondary to UTI and comorbid conditions below -Patient will require short term rehabilitation at a group home facility. She needs 3 midnight stay per Medicare rules. Daughter will come into town tomorrow to assist with placement. Acute urinary tract infection -Urine culture grew Proteus. -Completed treatment with Zosyn and cefuroxime. Hypoxemia: Resolved. Family reports she has been having issues with fluid overload secondary to liver cirrhosis. She is on Lasix but became dehydrated when she stopped drinking fluid. -Continue home dose Lasix at half the dose 20 mg daily. -Incentive spirometry. Wean off oxygen. Osteoarthritis flare: Right knee -Patient is on short course of oral steroid - Change pain medication to Percocet - Encouraged the patient to participate with PT Dehydration. Resolved with IV fluid. Chronic thrombocytopenia: Likely secondary to liver cirrhosis. Stable. No signs of active bleeding. Continue to monitor. Avoid anticoagulation. SCDs only. Diabetes mellitus. Insulin sliding scale and diabetic diet. History of cirrhosis. Chronic. Continue home medications. Continue rifaximin, Lasix, nadolol. Discharge Planning: Patient remains severely deconditioned and unable to ambulate. She needs rehabilitation at a group home facility. Case management following for placement.
[2018-05-25 12:19] LABS: Calcium 7.5 mg/dL (8.5-10.1); Carbon Dioxide 22.3 meq/L (21.0-32.0); Potassium 4.5 meq/L (3.5-5.1)
[2018-05-25] MEDS ORDERED: hydrALAZINE 25 MG Tablet PO ONE (20:54)
--- NOTE | 2018-05-26 07:34 | P.PNIM ---
Subjective Interval history: Follow up UTI and placement for discharge. Patient seen and examined, lying in bed comfortably, does complain of some abdominal pain and one bout of vomiting. Will add Protonix and Maalox. Continue Zofran. VSS. Afebrile. Awaiting labs this am. Physical Exam Vital signs: Vital Signs 05/25/18 08:23 05/25/18 08:41 05/25/18 11:54 Temperature 98.2 F 98.6 F Pulse Rate 66 61 Respiratory Rate 20 18 Blood Pressure 122/56 L 153/69 H Pulse Oximetry 95 94 L 96 05/25/18 11:55 05/25/18 12:00 05/25/18 16:00 Temperature 97.7 F 98.7 F Pulse Rate 71 65 Respiratory Rate 20 20 Blood Pressure 164/70 H 187/79 H Pulse Oximetry 96 95 95 05/25/18 19:30 05/25/18 20:00 05/25/18 22:47 Temperature 94.3 F L Pulse Rate 67 Respiratory Rate 18 Blood Pressure 181/69 H 146/65 H Pulse Oximetry 96 94 L 05/26/18 00:00 Temperature 98.1 F Pulse Rate 71 Respiratory Rate 18 Blood Pressure 170/67 H Pulse Oximetry 96 Intake & Output 05/25/18 05/26/18 05/26/18 18:59 06:59 18:59 Intake Total 720 / 720 120 / 120 Output Total 1201 / 1201 600 / 600 Balance -481 / -481 -480 / -480 Weight 62.2 kg Intake: Oral 720 / 720 120 / 120 Output: Urine 1200 / 1200 600 / 600 Stool Other: Date of Last Bowel Movement 05/25/18 05/25/18 Narrative: GENERAL: Elderly female in no acute distress. Very frail. CARDIOVASCULAR: Normal rate and regular rhythm without murmurs, gallops, or rubs. RESPIRATORY: Good respiratory efforts. Diminished breath sounds at the bases otherwise clear to auscultation bilaterally. GASTROINTESTINAL: Abdomen soft, non-tender, non-distended. Normal active bowel sounds MUSCULOSKELETAL: Right knee diffusely tender to palpation, limited range of motion due to pain. Trace bilateral lower extremity edema. No pain to palpation. NEURO: Alert & Oriented x4 to person, place, time, situation. PSYCH: Appropriate mood and affect. - Urinary Catheter Management Straight Cath placed during this visit: yes, but has since been removed by the nurse Reason for continuing: Not indwelling catheter Insertion date: 05/20/18 Insertion time: 18:00 Removal date: 05/20/18 Removal time: 18:01 Results - Labs CBC & Chem 7: 05/23/18 11:30 05/25/18 10:51 Laboratory Results - last 24 hr 05/25/18 05/25/18 05/25/18 08:02 10:51 17:05 Sodium 131 L Potassium 4.5 Chloride 100 Carbon Dioxide 22.3 Anion Gap 9 BUN 45 H Creatinine 1.38 H Estimated GFR 36 L POC Glucose 146 H 193 H Random Glucose 208 H Calcium 7.5 L 05/25/18 05/26/18 21:49 07:28 Sodium Potassium Chloride Carbon Dioxide Anion Gap BUN Creatinine Estimated GFR POC Glucose 232 H 134 H Random Glucose Calcium Microbiology 05/20/18 17:50 Blood - Peripheral Aerobic Blood Culture - Final No growth in 5 days 05/20/18 17:50 Blood - Peripheral Anaerobic Blood Culture - Final No growth in 5 days 05/20/18 17:50 Blood - Peripheral Aerobic Blood Culture - Final No growth in 5 days 05/20/18 17:50 Blood - Peripheral Anaerobic Blood Culture - Final Staphylococcus epidermidis Assessment and Plan - Assessment (1) UTI (urinary tract infection) Code(s): N39.0 - Urinary tract infection, site not specified Status: Acute (2) HTN (hypertension) Code(s): I10 - Essential (primary) hypertension Status: Acute (3) Physical deconditioning Code(s): R53.81 - Other malaise Status: Acute - Plan 87-year-old female presented with worsening generalized weakness. Likely secondary to UTI. Generalized weakness/severe physical deconditioning -Nonfocal. Likely secondary to UTI and comorbid conditions below -Patient will require short term rehabilitation at a [facility] facility. She needs 3 midnight stay per Medicare rules. -Daughter will come into town today to assist with placement. Acute urinary tract infection Acute kidney injury Dehydration, resolved. -Urine culture grew Proteus. -Completed treatment with Zosyn and cefuroxime. -Creatinine went up to 1.38. Awaiting labs today. Nausea and vomiting Abdominal -Started last evening overnight. One bout of emesis, brown in color. -Added Protonix and Maalox. Continue Zofran. -Will continue to assess. -Monitor this am labs. Hypoxemia, resolving. -Family reports she has been having issues with fluid overload secondary to liver cirrhosis. She is on Lasix but became dehydrated when she stopped drinking fluid. -Continue home dose Lasix at half the dose 20 mg daily. -Incentive spirometry. Wean off oxygen. Osteoarthritis flare: Right knee. Improved. -Patient is on short course of oral steroid -Continue Percocet for pain management. -Encouraged the patient to participate with PT Chronic thrombocytopenia: Likely secondary to liver cirrhosis. Stable. No signs of active bleeding. Continue to monitor. Avoid anticoagulation. SCDs only. Diabetes mellitus. Insulin sliding scale and diabetic diet. History of cirrhosis, Chronic. -Continue home medications. -Continue rifaximin, Lasix, nadolol. DVT Prophylaxis: SCDs. Hold chemical prophylaxis secondary to thrombocytopenia. No signs of bleeding at this time. Discharge Planning: Awaiting placement, CM assisting. Patient needs 3-night stay.
[2018-05-26 08:28] LABS: Hematocrit 28.7 % (35.0-46.0); Hemoglobin 9.9 gm/dL (11.6-15.3); Mean Corpuscular HGB Conc 34.7 % (32.0-36.0); Mean Corpuscular Hemoglobin 32.5 pg (27.0-34.0); Mean Corpuscular Volume 93.7 fL (80.0-100.0); Mean Platelet Volume 7.9 fL (7.0-11.0); Platelet Count 115 th/mm3 (150-450); Red Blood Count 3.06 mil/mm3 (4.00-5.30); Red Cell Distribution Width 15.4 % (11.6-17.2); White Blood Count 11.4 th/mm3 (4.0-11.0)
[2018-05-26] MEDS ORDERED: Aluminum/Magnesium/Simethacone Susp 30 ML UDC PO ONE (08:32)
[2018-05-26 08:37] LABS: Potassium 4.2 meq/L (3.5-5.1)
[2018-05-26] MEDS: Pantoprazole Inj 40 MG Vial IV.PUSH SCH (08:42)
[2018-05-26] MEDS: Furosemide 20 MG Tablet PO SCH (08:47)
[2018-05-26] MEDS: rifAXIMin 550 MG Tablet PO SCH (08:47)
[2018-05-26] MEDS: predniSONE 20 MG Tablet PO SCH (08:47)
[2018-05-26] MEDS: Nadolol 20 MG Tablet PO SCH (08:48)
[2018-05-26] MEDS: Insulin NovoLOG Aspart Correctional Sugar Inj SQ SCH ×4 (08:48→20:58)
[2018-05-26 09:00] LABS: Calcium 7.4 mg/dL (8.5-10.1); Carbon Dioxide 25.4 meq/L (21.0-32.0)
[2018-05-26 09:53] LABS: Total Protein 5.5 g/dL (6.4-8.2)
[2018-05-26] MEDS ORDERED: Sod Chloride 0.9% Inj 1,000 ML IV.CONT SCH (11:25)
[2018-05-26] MEDS ORDERED: Sodium Chlor 0.9% Inj 500 ML IV.SIG SCH (18:00)
[2018-05-26] MEDS ORDERED: Nadolol 20 MG Tablet PO SCH (18:00)
[2018-05-27] MEDS: Insulin NovoLOG Aspart Correctional Sugar Inj SQ SCH ×4 (08:12→21:05)
[2018-05-27] MEDS: Furosemide 20 MG Tablet PO SCH (08:14)
[2018-05-27] MEDS: Pantoprazole Inj 40 MG Vial IV.PUSH SCH (08:14)
[2018-05-27] MEDS: rifAXIMin 550 MG Tablet PO SCH (08:18)
--- NOTE | 2018-05-27 11:56 | P.PNIM ---
Physical Exam Vital signs: Vital Signs 05/26/18 12:00 05/26/18 16:00 05/26/18 19:43 Temperature 97.7 F 98.1 F Pulse Rate 65 53 L Respiratory Rate 22 20 Blood Pressure 105/54 L 96/44 L Pulse Oximetry 97 97 93 L 05/26/18 20:00 05/27/18 00:00 05/27/18 07:32 Temperature 98.5 F 97.8 F Pulse Rate 56 L 52 L Respiratory Rate 18 18 Blood Pressure 140/61 107/51 L Pulse Oximetry 98 95 94 L 05/27/18 08:25 05/27/18 11:34 Temperature 96.7 F L 96.8 F L Pulse Rate 73 48 L Respiratory Rate 16 14 Blood Pressure 104/67 100/50 L Pulse Oximetry 95 96 Intake & Output 05/26/18 05/27/18 05/27/18 18:59 06:59 18:59 Intake Total 985 / 985 Output Total 400 / 400 1200 / 1200 Balance -400 / -400 -215 / -215 Weight 63.2 kg Intake: IV 500 / 500 NS Inj 500 ML @ 1000 mls/hr IV. 500 / 500 SIG BOLUS DEONNA Rx#:[id number] Oral 485 / 485 Output: Urine 400 / 400 1200 / 1200 Other: # Voids 1 Date of Last Bowel Movement 05/25/18 05/25/18 05/25/18 # Bowel Movements 0 # Incontinent Bowel Movements 1 Narrative: GENERAL: Elderly female in no acute distress. Very frail. CARDIOVASCULAR: Normal rate and regular rhythm without murmurs, gallops, or rubs. RESPIRATORY: Good respiratory efforts. Diminished breath sounds at the bases otherwise clear to auscultation bilaterally. GASTROINTESTINAL: Abdomen soft, non-tender, non-distended. Normal active bowel sounds MUSCULOSKELETAL: Right knee diffusely tender to palpation, limited range of motion due to pain. Trace bilateral lower extremity edema. No pain to palpation. NEURO: Alert & Oriented x4 to person, place, time, situation. PSYCH: Appropriate mood and affect. - Urinary Catheter Management Straight Cath placed during this visit: yes, but has since been removed by the nurse Reason for continuing: Not indwelling catheter Insertion date: 05/20/18 Insertion time: 18:00 Removal date: 05/20/18 Removal time: 18:01 Results - Labs CBC & Chem 7: 05/26/18 08:14 05/26/18 08:14 Laboratory Results - last 24 hr 05/26/18 05/26/18 05/26/18 11:50 16:34 20:57 POC Glucose 132 H 175 H 155 H 05/27/18 07:18 POC Glucose 113 H Assessment and Plan - Assessment (1) UTI (urinary tract infection) Code(s): N39.0 - Urinary tract infection, site not specified Status: Acute (2) HTN (hypertension) Code(s): I10 - Essential (primary) hypertension Status: Acute (3) Physical deconditioning Code(s): R53.81 - Other malaise Status: Acute - Plan 87-year-old female presented with worsening generalized weakness. Likely secondary to UTI. Generalized weakness/severe physical deconditioning -Nonfocal. Likely secondary to UTI and comorbid conditions below -Patient will require short term rehabilitation at a [place]. -Going to [facility] and rehab today. CM assisting. Acute urinary tract infection, improving. Acute kidney injury, improving. Dehydration, resolved. -Urine culture grew Proteus. -Completed treatment with Zosyn and cefuroxime. -Creatinine 1.2 yesterday, Awaiting labs today. Nausea and vomiting, improved Abdominal pain, improved -Started last evening overnight. One bout of emesis, brown in color. -Added Protonix and Maalox. Continue Zofran. -Will continue to assess. -Monitor this am labs. Hypoxemia, resolving. -Family reports she has been having issues with fluid overload secondary to liver cirrhosis. -She is on Lasix but became dehydrated when she stopped drinking fluid. -Continue home dose Lasix at half the dose 20 mg daily. -Incentive spirometry. -Wean off oxygen. Osteoarthritis flare: Right knee. Improved. -Patient is on short course of oral steroid -Continue Percocet for pain management. -Encouraged the patient to participate with PT Chronic thrombocytopenia: Likely secondary to liver cirrhosis. Stable. No signs of active bleeding. Continue to monitor. Avoid anticoagulation. SCDs only. Diabetes mellitus. Insulin sliding scale and diabetic diet. History of cirrhosis, Chronic. -Continue home medications. -Continue rifaximin, Lasix, nadolol. DVT Prophylaxis: SCDs. Hold chemical prophylaxis secondary to thrombocytopenia. No signs of bleeding at this time. Discharge Planning: Awaiting placement, CM assisting. Patient needs 3-night stay.
--- NOTE | 2018-05-27 11:59 | P.DS ---
Date of admission: 05/23/18 16:03 Primary care physician: UNKNOWN Anticipated date of discharge: 05/27/18 Brief History from admission: 87-year-old female with a history of diabetes, hyperlipidemia, stomach cancer status post resection in the past, who presents with a one-week history of progressively worsening nonfocal weakness. She denies any chest pain, shortness breath, nausea vomiting. She denies any pain. Denies any fevers chills. Denies any dysuria. Patient update on day of discharge: Patient seen and examined, sitting in chair comfortably in nad. Breathing well. Pain controlled. Urinating well. Does complain of some leg spasms and possible nerve pain. Eating well without any nausea or vomiting. On 1.5LNC. Will DC to SNF today. Family at bedside and updated. DS: Diagnosis - Discharge Diagnosis (1) UTI (urinary tract infection) Status: Acute (2) HTN (hypertension) Status: Acute (3) Physical deconditioning Status: Acute DS: Medications - Discharge Medications Prescriptions: tramadol [Ultram] 50 mg PO Q6H #8 tab DS: Summary Hospital Course: This is an 87-year-old female presented with worsening generalized weakness. Likely secondary to UTI. Presented with generalized weakness/severe physical deconditioning. Likely secondary to UTI and comorbid conditions below . Patient will require short term rehabilitation at a [facility] facility. Going to [facility] today. Acute urinary tract infection, improving; Acute kidney injury, improving; Dehydration, resolved. Urine culture grew Proteus. Completed treatment with Zosyn and cefuroxime. Nausea and vomiting, improved; Abdominal pain, improved. Added Protonix and Maalox. Improved. Hypoxemia, resolving. Family reports she has been having issues with fluid overload secondary to liver cirrhosis. She is on Lasix but became dehydrated when she stopped drinking fluid. Continue home dose Lasix at half the dose 20 mg daily. Encourage use of incentive spirometry and wean off oxygen. May be secondary to opioids. Osteoarthritis flare: Right knee. Improved. Patient is on short course of oral steroid. On Percocet for pain management. Changed to Ultram. Encouraged the patient to participate with PT. Chronic thrombocytopenia : Likely secondary to liver cirrhosis. Stable. Diabetes mellitus. Insulin sliding scale and diabetic diet. History of cirrhosis, Chronic. Continue home medications. Continue rifaximin, Lasix. Cannot tolerate beta escobar due to low HR. Stable for DC today. RX as written. - Time Spent with Patient Total time spent providing and/or coordinating discharge services: Greater than 30 minutes - Quality: VTE Deep Vein Thrombosis/Pulmonary Embolism Present on Admission: No Exam Vital signs: Vital Signs 05/26/18 12:00 05/26/18 16:00 05/26/18 19:43 Temperature 97.7 F 98.1 F Pulse Rate 65 53 L Respiratory Rate 22 20 Blood Pressure 105/54 L 96/44 L Pulse Oximetry 97 97 93 L 05/26/18 20:00 05/27/18 00:00 05/27/18 07:32 Temperature 98.5 F 97.8 F Pulse Rate 56 L 52 L Respiratory Rate 18 18 Blood Pressure 140/61 107/51 L Pulse Oximetry 98 95 94 L 05/27/18 08:25 05/27/18 11:34 Temperature 96.7 F L 96.8 F L Pulse Rate 73 48 L Respiratory Rate 16 14 Blood Pressure 104/67 100/50 L Pulse Oximetry 95 96 Intake & Output 05/26/18 05/27/18 05/27/18 18:59 06:59 18:59 Intake Total 985 / 985 Output Total 400 / 400 1200 / 1200 Balance -400 / -400 -215 / -215 Weight 63.2 kg Intake: IV 500 / 500 NS Inj 500 ML @ 1000 mls/hr IV. 500 / 500 SIG BOLUS DEONNA Rx#:[id number] Oral 485 / 485 Output: Urine 400 / 400 1200 / 1200 Other: # Voids 1 Date of Last Bowel Movement 05/25/18 05/25/18 05/25/18 # Bowel Movements 0 # Incontinent Bowel Movements 1 Narrative: GENERAL: Elderly female in no acute distress. CARDIOVASCULAR: Normal rate and regular rhythm without murmurs, gallops, or rubs. RESPIRATORY: Good respiratory efforts. Diminished breath sounds at the bases otherwise clear to auscultation bilaterally. GASTROINTESTINAL: Abdomen soft, non-tender, non-distended. Normal active bowel sounds MUSCULOSKELETAL: Right knee diffusely tender to palpation, limited range of motion due to pain. Trace bilateral lower extremity edema. No pain to palpation. NEURO: Alert & Oriented x4 to person, place, time, situation. PSYCH: Appropriate mood and affect. Results Procedures completed during hospitalization: See above. Labs on day of discharge: Labs from last 24 hours 05/27/18 05/26/18 05/26/18 07:18 20:57 16:34 POC Glucose 113 H 155 H 175 H - Impressions ITS Impressions Chest X-Ray 05/20/18 17:37 CONCLUSION: No acute intrathoracic disease. Discharge Plan - Discharge Disposition Patient Disposition: 03 Discharge to SNF - Discharge Condition Condition: Stable - Discharge Order Discharge Orders: Discharge Order (Routine); Ordered 05/27/18 Ordered By: Shauna Rodriguez - Discharge Details Anticipated Discharge Date: 05/27/18 - Physicians Team Primary Care Provider: UNKNOWN, Attending Provider: Leanna Barfield Other Providers: [facility],Agency
[2018-05-27 13:05] LABS: Baso % (Auto) 0.2 % (0.0-2.0); Eos # (Auto) 0.2 th/mm3 (0.0-0.4); Eos % (Auto) 1.6 % (0.0-4.0); Hematocrit 25.9 % (35.0-46.0); Hemoglobin 8.9 gm/dL (11.6-15.3); Lymph # (Auto) 1.2 th/mm3 (1.0-4.8); Lymph % (Auto) 12.6 % (9.0-44.0); Mean Corpuscular HGB Conc 34.3 % (32.0-36.0); Mean Corpuscular Hemoglobin 32.5 pg (27.0-34.0); Mean Corpuscular Volume 94.8 fL (80.0-100.0); Mean Platelet Volume 7.9 fL (7.0-11.0); Mono # (Auto) 0.9 th/mm3 (0.0-0.9); Mono % (Auto) 9.6 % (0.0-8.0); Neut # (Auto) 7.3 th/mm3 (1.8-7.7); Platelet Count 119 th/mm3 (150-450); Red Blood Count 2.73 mil/mm3 (4.00-5.30); Red Cell Distribution Width 16.2 % (11.6-17.2); White Blood Count 9.6 th/mm3 (4.0-11.0)
[2018-05-27 13:25] LABS: Potassium 4.8 meq/L (3.5-5.1)
[2018-05-27 13:27] LABS: Calcium 7.6 mg/dL (8.5-10.1)
[2018-05-27 13:28] LABS: Carbon Dioxide 25.8 meq/L (21.0-32.0)
--- NOTE | 2018-05-27 14:39 | XR ---
EXAM DATE: 05/27/2018 2:21 PM EST AGE/SEX: 87 years / Female INDICATIONS: Congestion. CLINICAL DATA: This is the patient's subsequent encounter. Patient reports that signs and symptoms h ave been present for 3 days and indicates a pain score of 0/10. MEDICAL/SURGICAL HISTORY: Hypertension. Hypercholesterolemia. Diabetes mellitus type II. Cir rhosis. Left breast cancer. Hysterectomy. Mastectomy, left. COMPARISON: [facility] [place] CHEST 1V SINGLE AP, 05/20/2018. . FINDINGS: Lung volumes are symmetrically diminished. There is mild basilar infiltrate or atelectasis. Cardiac c ontours are grossly satisfactory for projection. CONCLUSION: Mild bibasilar pleural-parenchymal opacities Electronically signed by: Sridhar Torres MD 05/27/2018 2:37 PM EST
--- NOTE | 2018-05-27 15:18 | P.PNIM ---
Subjective Interval history: Patient seen and examined, sitting in chair comfortably in nad. Breathing well. Pain controlled. Urinating well. Does complain of some leg spasms and possible nerve pain. Eating well without any nausea or vomiting. On 1.5LNC. Creatinine worsening. Check CXR. Family at bedside and updated. Physical Exam Vital signs: Vital Signs 05/26/18 16:00 05/26/18 19:43 05/26/18 20:00 Temperature 98.1 F 98.5 F Pulse Rate 53 L 56 L Respiratory Rate 20 18 Blood Pressure 96/44 L 140/61 Pulse Oximetry 97 93 L 98 05/27/18 00:00 05/27/18 07:32 05/27/18 08:25 Temperature 97.8 F 96.7 F L Pulse Rate 52 L 73 Respiratory Rate 18 16 Blood Pressure 107/51 L 104/67 Pulse Oximetry 95 94 L 95 05/27/18 11:34 05/27/18 13:47 Temperature 96.8 F L Pulse Rate 48 L 54 L Respiratory Rate 14 Blood Pressure 100/50 L 102/50 L Pulse Oximetry 96 Intake & Output 05/26/18 05/27/18 05/27/18 18:59 06:59 18:59 Intake Total 985 / 985 Output Total 400 / 400 1200 / 1200 Balance -400 / -400 -215 / -215 Weight 63.2 kg Intake: IV 500 / 500 NS Inj 500 ML @ 1000 mls/hr IV. 500 / 500 SIG BOLUS DEONNA Rx#:[id number] Oral 485 / 485 Output: Urine 400 / 400 1200 / 1200 Other: # Voids 1 Date of Last Bowel Movement 05/25/18 05/25/18 05/25/18 # Bowel Movements 0 # Incontinent Bowel Movements 1 Narrative: GENERAL: Elderly female in no acute distress. CARDIOVASCULAR: Normal rate and regular rhythm without murmurs, gallops, or rubs. RESPIRATORY: Good respiratory efforts. Diminished breath sounds at the bases otherwise clear to auscultation bilaterally. GASTROINTESTINAL: Abdomen soft, non-tender, non-distended. Normal active bowel sounds MUSCULOSKELETAL: Right knee diffusely tender to palpation, limited range of motion due to pain. Trace bilateral lower extremity edema. No pain to palpation. NEURO: Alert & Oriented x4 to person, place, time, situation. PSYCH: Appropriate mood and affect. - Urinary Catheter Management Straight Cath placed during this visit: yes, but has since been removed by the nurse Reason for continuing: Not indwelling catheter Insertion date: 05/20/18 Insertion time: 18:00 Removal date: 05/20/18 Removal time: 18:01 Results - Labs CBC & Chem 7: 05/27/18 12:55 05/27/18 12:55 Laboratory Results - last 24 hr 05/26/18 05/26/18 05/27/18 16:34 20:57 07:18 CBC w Diff WBC RBC Hgb Hct MCV MCH MCHC RDW Plt Count MPV Neut % (Auto) Lymph % (Auto) [place] % (Auto) Eos % (Auto) Baso % (Auto) Neut # (Auto) Lymph # (Auto) [place] # (Auto) Eos # (Auto) Baso # (Auto) WBC Differential Differential Comment Sodium Potassium Chloride Carbon Dioxide Anion Gap BUN Creatinine Estimated GFR POC Glucose 175 H 155 H 113 H Random Glucose Calcium 05/27/18 05/27/18 05/27/18 12:55 12:55 13:02 CBC w Diff Auto diff final WBC 9.6 RBC 2.73 L Hgb 8.9 L Hct 25.9 L MCV 94.8 MCH 32.5 MCHC 34.3 RDW 16.2 Plt Count 119 L MPV 7.9 Neut % (Auto) 76.0 H Lymph % (Auto) 12.6 [place] % (Auto) 9.6 H Eos % (Auto) 1.6 Baso % (Auto) 0.2 Neut # (Auto) 7.3 Lymph # (Auto) 1.2 [place] # (Auto) 0.9 Eos # (Auto) 0.2 Baso # (Auto) 0.0 WBC Differential . Differential Comment . Sodium 135 L Potassium 4.8 Chloride 102 Carbon Dioxide 25.8 Anion Gap 7 BUN 65 H Creatinine 1.60 H Estimated GFR 30 L POC Glucose 146 H Random Glucose 146 H Calcium 7.6 L - Imaging Impressions Chest X-Ray 05/27/18 00:00 CONCLUSION: Mild bibasilar pleural-parenchymal opacities - Procedures See above. Assessment and Plan - Assessment (1) UTI (urinary tract infection) Code(s): N39.0 - Urinary tract infection, site not specified Status: Acute (2) HTN (hypertension) Code(s): I10 - Essential (primary) hypertension Status: Acute (3) Physical deconditioning Code(s): R53.81 - Other malaise Status: Acute - Plan This is an 87-year-old female presented with worsening generalized weakness. Likely secondary to UTI. Generalized weakness/severe physical deconditioning -Nonfocal. Likely secondary to UTI and comorbid conditions below -[facility] She needs 3 midnight stay per Medicare rules. -Daughter will come into town today to assist with placement. Acute urinary tract infection Acute kidney injury Dehydration, resolved. -Urine culture grew Proteus. -Completed treatment with Zosyn and cefuroxime. -Creatinine went up to 1.38. Awaiting labs today. Nausea and vomiting Abdominal -Started last evening overnight. One bout of emesis, brown in color. -Added Protonix and Maalox. Continue Zofran. -Will continue to assess. -Monitor this am labs. Hypoxemia, resolving. -Family reports she has been having issues with fluid overload secondary to liver cirrhosis. She is on Lasix but became dehydrated when she stopped drinking fluid. -Continue home dose Lasix at half the dose 20 mg daily. -Incentive spirometry. Wean off oxygen. Osteoarthritis flare: Right knee. Improved. -Patient is on short course of oral steroid -Continue Percocet for pain management. -Encouraged the patient to participate with PT Chronic thrombocytopenia: Likely secondary to liver cirrhosis. Stable. No signs of active bleeding. Continue to monitor. Avoid anticoagulation. SCDs only. Diabetes mellitus. Insulin sliding scale and diabetic diet. History of cirrhosis, Chronic. -Continue home medications. -Continue rifaximin, Lasix, nadolol. DVT Prophylaxis: SCDs. Hold chemical prophylaxis secondary to thrombocytopenia. No signs of bleeding at this time.
[2018-05-27] MEDS: Acetaminophen 325 MG Tablet PO PRN (22:54)
[2018-05-28 07:03] LABS: Baso % (Auto) 0.8 % (0.0-2.0); Eos # (Auto) 0.2 th/mm3 (0.0-0.4); Eos % (Auto) 4.6 % (0.0-4.0); Hemoglobin 7.9 gm/dL (11.6-15.3); Lymph % (Auto) 20.4 % (9.0-44.0); Mean Corpuscular HGB Conc 35.7 % (32.0-36.0); Mean Corpuscular Hemoglobin 33.6 pg (27.0-34.0); Mean Corpuscular Volume 94.2 fL (80.0-100.0); Mono # (Auto) 0.5 th/mm3 (0.0-0.9); Mono % (Auto) 10.4 % (0.0-8.0); Neut # (Auto) 3.3 th/mm3 (1.8-7.7); Neut % (Auto) 63.8 % (16.0-70.0); Platelet Count 88 th/mm3 (150-450); Red Blood Count 2.33 mil/mm3 (4.00-5.30); Red Cell Distribution Width 16.6 % (11.6-17.2)
[2018-05-28 07:21] LABS: Potassium 4.8 meq/L (3.5-5.1)
[2018-05-28 07:31] LABS: Calcium 7.3 mg/dL (8.5-10.1); Carbon Dioxide 22.7 meq/L (21.0-32.0)
[2018-05-28 07:53] LABS: Total Protein 5.2 g/dL (6.4-8.2)
[2018-05-28] MEDS: Pantoprazole Inj 40 MG Vial IV.PUSH SCH ×2 (07:59→17:49)
[2018-05-28] MEDS: rifAXIMin 550 MG Tablet PO SCH (08:00)
[2018-05-28] MEDS: Furosemide 20 MG Tablet PO SCH (08:00)
[2018-05-28] MEDS: Insulin NovoLOG Aspart Correctional Sugar Inj SQ SCH ×4 (08:01→21:51)
[2018-05-28 08:45] LABS: Platelet Morphology Normal (Normal)
--- NOTE | 2018-05-28 12:42 | ECHRPT ---
Indication: CONCLUSIONS The left ventricular systolic function is normal with an estimated ejection fraction in the range of 60-65%. Normal left ventricular size. Wall thickness is normal. No regional wall motion abnormalities are present. Mild thickening of the mitral valve leaflets. Trace mitral valve regurgitation. There is trace tricuspid valve regurgitation. The estimated pulmonary arterial pressure is 51.7 mmHg. The inferior vena cava was not well visualized. BP: / HR: Rhythm: Sinus MEASUREMENTS (Male / Female) Normal Values Technical Quality:Excellent 2D ECHO LV Diastolic Diameter PLAX 3.8 cm 4.2 - 5.9 / 3.9 - 5.3 cm LV Systolic Diameter PLAX 2.7 cm IVS Diastolic Thickness 1.0 cm 0.6 - 1.0 / 0.6 - 0.9 cm LVPW Diastolic Thickness 1.0 cm 0.6 - 1.0 / 0.6 - 0.9 cm LV Relative Wall Thickness 0.5 RV Internal Dim ED PLAX 3.2 cm LVOT Diameter 1.6 cm LA Systolic Diameter LX 3.6 cm 3.0 - 4.0 / 2.7 - 3.8 cm LV Ejection Fraction MOD 4C 60.7 % LV Ejection Fraction 4C AL 62.2 % M-MODE Aortic Root Diameter MM 1.7 cm LA Systolic Diameter MM 3.9 cm LA Ao Ratio MM 2.3 AV Cusp Separation MM 1.4 cm DOPPLER AV Peak Velocity 130.0 cm/s AV Peak Gradient 6.8 mmHg LVOT Peak Velocity 94.8 cm/s LVOT Peak Gradient 3.6 mmHg AV Area Cont Eq pk 1.5 cm MV Area PHT 3.5 cm Mitral E Point Velocity 136.0 cm/s Mitral A Point Velocity 95.8 cm/s Mitral E to A Ratio 1.4 LV E' Lateral Velocity 5.9 cm/s Mitral E to LV E' Lateral Ratio 22.9 LV E' Septal Velocity 4.2 cm/s Mitral E to LV E' Septal Ratio 32.5 TR Peak Velocity 323.0 cm/s TR Peak Gradient 41.7 mmHg Right Atrial Pressure 10.0 mmHg Pulmonary Artery Systolic Pressu 51.7 mmHg Right Ventricular Systolic Press 51.7 mmHg PV Peak Velocity 99.1 cm/s PV Peak Gradient 3.9 mmHg FINDINGS LEFT VENTRICLE The left ventricular systolic function is normal with an estimated ejection fraction in the range of 60-65%. Normal left ventricular size. Wall thickness is normal. No regional wall motion abnormalities are present. RIGHT VENTRICLE Normal right ventricular size and systolic function. LEFT ATRIUM The left atrial size is normal. RIGHT ATRIUM The right atrial size is normal. ATRIAL SEPTUM Normal atrial septal thickness without atrial level shunting by limited color doppler interrogation. AORTA The aortic root and proximal ascending aorta are normal in size on limited imaging. MITRAL VALVE Mild thickening of the mitral valve leaflets. Trace mitral valve regurgitation. AORTIC VALVE Trileaflet aortic valve. No aortic valve stenosis or regurgitation. TRICUSPID VALVE Structurally normal tricuspid valve. There is trace tricuspid valve regurgitation. The estimated pulmonary arterial pressure is 51.7 mmHg. PULMONARY VALVE No pulmonary valve regurgitation or stenosis. VESSELS The inferior vena cava was not well visualized. PERICARDIUM No pericardial effusion. Talon Sarabia MD, FACC (Electronically Signed) Final Date:28 May 2018 12:41
[2018-05-28] MEDS: Acetaminophen 325 MG Tablet PO PRN ×2 (13:05→17:07)
--- NOTE | 2018-05-28 15:46 | P.PNIM ---
Subjective Interval history: Patient is sitting upright in a chair. She currently does not have any complaints. She is awake and alert. Physical Exam Vital signs: Vital Signs 05/27/18 17:14 05/27/18 17:46 05/27/18 20:00 Temperature 96.8 F L 95.6 F L Pulse Rate 47 L 46 L Respiratory Rate 20 20 18 Blood Pressure 105/48 L 105/49 L Pulse Oximetry 94 L 97 05/27/18 20:05 05/27/18 23:58 05/28/18 00:39 Temperature 96.5 F L Pulse Rate 50 L Respiratory Rate 18 18 Blood Pressure 140/65 Pulse Oximetry 96 96 05/28/18 01:38 05/28/18 05:27 05/28/18 07:25 Temperature Pulse Rate Respiratory Rate 18 Blood Pressure Pulse Oximetry 91 L 95 05/28/18 08:00 05/28/18 11:07 05/28/18 15:07 Temperature 97.4 F L 97.0 F L Pulse Rate 63 55 L Respiratory Rate 20 18 20 Blood Pressure 132/60 102/45 L Pulse Oximetry 95 Intake & Output 05/27/18 05/28/18 05/28/18 18:59 06:59 18:59 Intake Total 1800 / 1800 240 / 240 600 / 600 Output Total 250 / 250 1000 / 1000 400 / 400 Balance 1550 / 1550 -760 / -760 200 / 200 Weight 63.3 kg Intake: IV 1000 / 1000 NS Inj 1,000 ML @ 42 mls/hr IV. 1000 / 1000 CONT .[id number] [facility] Rx#: [id number] Oral 800 / 800 240 / 240 600 / 600 Output: Urine 250 / 250 1000 / 1000 400 / 400 Other: Date of Last Bowel Movement 05/25/18 05/27/18 05/27/18 Narrative: General patient in no acute distress HEENT extraocular movements are intact, clear oropharyngeal mucosa, nasal cannula in place. Cardiovascular S1-S2 audible Respiratory clear to auscultation bilaterally Abdomen soft, nontender, nondistended, normal bowel sounds Extremities no edema 2+ distal pulses in bilateral upper and lower extremities Neuro patient moves all 4 extremities and sensation is intact bilaterally. - Urinary Catheter Management Straight Cath placed during this visit: yes, but has since been removed by the nurse Reason for continuing: Not indwelling catheter Insertion date: 05/20/18 Insertion time: 18:00 Removal date: 05/20/18 Removal time: 18:01 Results - Labs CBC & Chem 7: 05/28/18 05:20 05/28/18 05:20 Laboratory Results - last 24 hr 05/27/18 05/27/18 05/28/18 12:55 21:01 05:20 CBC w Diff Slide review pending WBC 5.0 RBC 2.33 L Hgb 7.9 L Hct 22.0 L MCV 94.2 MCH 33.6 MCHC 35.7 RDW 16.6 Plt Count 88 L MPV 8.0 Neut % (Auto) 63.8 Lymph % (Auto) 20.4 [place] % (Auto) 10.4 H Eos % (Auto) 4.6 H Baso % (Auto) 0.8 Neut # (Auto) 3.3 Lymph # (Auto) 1.0 [place] # (Auto) 0.5 Eos # (Auto) 0.2 Baso # (Auto) 0.0 WBC Differential . Diff Scan Auto diff confirmed Differential Comment . Platelet Estimate Low L Platelet Morphology Normal Sodium Potassium Chloride Carbon Dioxide Anion Gap BUN Creatinine Estimated GFR POC Glucose 142 H Random Glucose Calcium Prot Corrected Calcium B-Natriuretic Peptide 295 H Total Protein 05/28/18 05/28/18 05/28/18 05:20 06:54 11:17 CBC w Diff WBC RBC Hgb Hct MCV MCH MCHC RDW Plt Count MPV Neut % (Auto) Lymph % (Auto) [place] % (Auto) Eos % (Auto) Baso % (Auto) Neut # (Auto) Lymph # (Auto) [place] # (Auto) Eos # (Auto) Baso # (Auto) WBC Differential Diff Scan Differential Comment Platelet Estimate Platelet Morphology Sodium 134 L Potassium 4.8 Chloride 103 Carbon Dioxide 22.7 Anion Gap 8 BUN 66 H Creatinine 1.70 H Estimated GFR 28 L POC Glucose 86 133 H Random Glucose 78 Calcium 7.3 L* Prot Corrected Calcium 8.3 L B-Natriuretic Peptide Total Protein 5.2 L - Procedures See above. Assessment and Plan - Assessment (1) UTI (urinary tract infection) Code(s): N39.0 - Urinary tract infection, site not specified Status: Acute (2) HTN (hypertension) Code(s): I10 - Essential (primary) hypertension Status: Acute (3) Physical deconditioning Code(s): R53.81 - Other malaise Status: Acute - Plan This patient is an 87-year-old female with a diagnosis of hyperlipidemia, diabetes, stomach cancer status post resection in the past. The patient presented with complaints of 1 week history of weakness. She was found to have a urinary tract infection and admitted for treatment. 1. Proteus UTI Patient was treated for her urinary tract infection. She completed her antibiotic course while in house. 2. Acute kidney injury The patient's chest x-ray from yesterday appears to show pulmonary vascular congestion. BNP was elevated. Patient did have one dose of Lasix IV yesterday and had a proximally 1 L of urine output after the Lasix dose. No significant change in the patient's serum creatinine. Patient had some black stools today. We will guaiac the stool sample. If guaiac is positive will consult GI. Protonix changed to twice daily IV. Patient does have a history of cirrhosis. We will be careful with giving IV Lasix to avoid potential hepatorenal syndrome. 3. Normocytic anemia Patient had a drop in hemoglobin of one-point from yesterday to today. From 05/20/2018 the patient had a hemoglobin of 11.3 on admission. I evaluated the patient and the nurse showed me a sample of the patient's stool which appears to be black. We will guaiac the stool sample. Patient will be started on Protonix 40 mill grams IV twice daily. If the guaiac is positive I will consult GI. We will follow-up a.m. labs. 3. Acute hypoxic respiratory failure Patient still requiring 1-2 L of supplemental oxygen. This could possibly be due to the pulmonary vascular congestion seen on chest x-ray. As mentioned above I will give a dose of IV Lasix today. Strict ins and outs. We will follow-up a.m. labs. If possible we will continue to titrate the patient off supplemental oxygen. 4. Diabetes mellitus Continue insulin sliding scale. Diabetic diet 5. History of cirrhosis Continue rifaximin, p.o. Lasix, nadolol. No pharmacotherapy for DVT prophylaxis the patient is currently anemic, concern for possible GI bleed.
[2018-05-28 16:44] LABS: Bilirubin,Urine Negative (Negative); Clarity,Urine Clear (Clear); Color,Urine Yellow (Yellw/Straw); Glucose,Urine (UA) Negative (Negative); Leukocyte Esterase,Urine Negative (Negative); Nitrite,Urine Negative (Negative); PH,Urine 5.5 (5.0-8.5); Specific Gravity,Urine Less/Equal 1.005 (1.002-1.035); Urobilinogen,Urine 0.2 mg/dL (Less than 2)
[2018-05-28 16:52] LABS: Bacteria,Urine Occasional /hpf; Squamous Epithelial Cell,Urine 0-5 /hpf (0-5); WBC,Urine 0-5 /hpf (0-5)
[2018-05-29] MEDS: Acetaminophen 325 MG Tablet PO PRN ×2 (05:26→20:18)
[2018-05-29] MEDS: Pantoprazole Inj 40 MG Vial IV.PUSH SCH (05:27)
[2018-05-29 07:15] LABS: Hematocrit 23.5 % (35.0-46.0)
[2018-05-29 07:21] LABS: Potassium 4.9 meq/L (3.5-5.1)
[2018-05-29 07:31] LABS: Calcium 7.4 mg/dL (8.5-10.1); Carbon Dioxide 24.8 meq/L (21.0-32.0)
[2018-05-29 07:48] LABS: Total Protein 5.2 g/dL (6.4-8.2)
[2018-05-29] MEDS: Insulin NovoLOG Aspart Correctional Sugar Inj SQ SCH ×4 (09:18→20:26)
[2018-05-29] MEDS: rifAXIMin 550 MG Tablet PO SCH (09:21)
[2018-05-29] MEDS: Furosemide 20 MG Tablet PO SCH (09:21)
--- NOTE | 2018-05-29 10:18 | P.CONGI ---
History of Present Illness Consult date: 05/29/18 Consult reason: Mrs. Whitehead is an 87 year old female with a history of colon cancer, L breast cancer, liver cirrhosis, colon polyps comes to the hospital for generalized weakness. GI was consulted due to anemia and black stools. Upon admission, the patient had pancytopenia with a Hgb of 11.8, positive urine test for UTI and guaiac postive stool. Today, the patient has a Hgb of 8.0, and complain of bilateral lower quadrant abdominal pain. She states that the pain is an 8/10, stabbing pain worse with movement and eating. Pain is relieved with Tylenol. The patient last meal was this morning, in which she ate minimal amount of food and her last bowel movement was yesterday. Patient states that she does have some nausea, fatigue and weakness, but denies dizziness, lightheadedness, diarrhea, hematochezia, vomiting, hematemesis, dysuria, hematuria. Her last colonoscopy and EGD was more than 10 years ago. PMH: colon cancer, left breast cancer, acute kidney injury, UTI, DM, HTN, hyperlipidemia Past SurgHx: , colon surgery, lefts breast mastectomy Medications: Allergies: Past Social Hx: lives with and son, denies alcohol use ROS: denies heart palpitations, SOB, paresthesias, does have decreased balance PE: Mrs. Whitehead is a pale female who seems fatigued, and confused sitting comfortably in bed. Vitals: HEENT: conjunctiva pale, eyes PERRLA, oropharynx has no obstructions, pink and moist mucosa, hard palate protrusion Heart: S1. S2, regular rate and rhythm no murmurs, rubs or gallops Lungs: only auscultated the middle and upper lobes, clear Ab: small scar under the umbilicus and a RLQ scar, bowel sounds present in all 4 quadrants, abdomen was soft, pain to deep palpation in the RLQ and LLQ near below the anterior superior iliac crest Neuro: AXO x2, bilateral essential tremor, negative finger to noes test bilaterally MSK: several ecchymosis on arms bilaterally, no peripheral edema, peripheral pulses palpable Assessment: Mrs. Whitehead is an 87 year old Female that is poor historian with confusion, with fatigue, weakness, melena, anemia, liver cirrhosis, and abdominal pain and history of GI cancer. Differential Diagnosis: Anemia, Heme + stool: 1. Liver Cirrhosis causing esophageal varices 2. Recurrent GI cancer 3. Peptic/Gastric Ulcer 4. Dielofuly's lesion 5. AVM Pancytopenia with Abnormal LFT: 1. Liver cirrhosis unknown etiology, probable steatohepatitis Abdominal Pain: 1. UTI as per urine culture 2. Acute Kidney Injury 3. Liver cirrhosis causing pain 4. Recurrence of GI cancer 5. Constipation, less likely since last BM was yesterday Plan: 1. EGD and colonoscopy to find source or melena and anemia 2. No further work-up for liver cirrhosis, due to age of patient, stability of patient, and family has no interest in further work-up for cirrhosis 3. Continue UTI treatment, 4. Tylenol for abdominal pain management Chief complaint: uti <Maggie Jenkins - Last Filed: 05/29/18 09:43> Consult reason: Patient was seen and examined, agree with above note, in summary patient came in with abdominal pain most likely UTI, known history of colon cancer and breast cancer patient also has cirrhosis questionable etiology most likely steatohepatitis related, according to the family she never has been drinker We will plan an endoscopy and colonoscopy I discussed this with the patient and her and both agreeable We will monitor H&H with packed RBC as needed <Chauncey Askew - Last Filed: 05/29/18 10:24> PMFSH - History History Provided By: Patient - Medical History Medical History: Medical History (Last Reviewed 05/25/18 @ 15:31 by Vishal Hickman) Diabetes High cholesterol History of stomach cancer Liver disease - Surgical History Surgical History: Surgical History (Last Reviewed 05/25/18 @ 15:31 by Vishal Hickman) Hx of left mastectomy - Family History Family History: Family History (Last Updated 05/21/18 @ 01:04 by Hammad Woodson MD) Father Pulmonary embolism Mother Cancer - Tobacco History Second Hand Smoke Exposure: No Smoking Status: Never smoker - Alcohol History How Often Do You Have a Drink Containing Alcohol: Never - Substance Use History Substance History: No History of Abuse - Travel History Recent Travel in the [place] Within the Last 8 Weeks: No Recent Travel Out of the Country Within the Last 8 Weeks: No - Immunization History Tetanus Immunization: >5 Years Hx Influenza Vaccine This Season: Yes <Maggie Jenkins - Last Filed: 05/29/18 09:43> - Medical History Medical History: Medical History (Last Reviewed 05/25/18 @ 15:31 by Vishal Hickman) Diabetes High cholesterol History of stomach cancer Liver disease - Surgical History Surgical History: Surgical History (Last Reviewed 05/25/18 @ 15:31 by Vishal Hickman) Hx of left mastectomy - Family History Family History: Family History (Last Updated 05/21/18 @ 01:04 by Hammad Woodson MD) Father Pulmonary embolism Mother Cancer <Chauncey Askew - Last Filed: 05/29/18 10:24> Medications and Allergies Active Medications: Active Medications Acetaminophen (Tylenol) 650 mg PO Q4H PRN PRN Reason: pain 1-10/fever > 100.4 Last Admin: 05/29/18 05:26 Dose: 650 mg Al Hydroxide/Mg Hydroxide (Milk Of Magnesia Liq) 30 ml PO Q12H PRN PRN Reason: Mild Constipation Last Admin: 05/27/18 09:05 Dose: 30 ml Bisacodyl (Dulcolax Supp) 10 mg RECTAL DAILY PRN PRN Reason: SEVERE CONSITIPATION Dextrose (D50w Vial) 50 ml IV.PUSH UNSCH PRN PRN Reason: PER HYPOGLYCEMIA PROTOCOL Furosemide (Lasix) 20 mg PO DAILY [facility] Last Admin: 05/29/18 09:21 Dose: 20 mg Glucagon (Glucagon Inj) 1 mg OTHER PRN PRN PRN Reason: for Hypoglycemia Protocol Insulin Aspart (Novolog Insulin Correctional Sugar Inj) 0 unit SQ ACHS [facility]; Protocol Last Admin: 05/29/18 09:18 Dose: Not Given Lactulose (Lactulose Liq) 30 ml PO DAILY PRN PRN Reason: SEVERE CONSITIPATION Losartan Potassium (Cozaar) 50 mg PO DAILY [facility] Last Admin: 05/26/18 08:47 Dose: 50 mg Menthol/Methyl Salicylate (Richard Stuart Oint) 1 applicatio TOPICAL UNSCH PRN PRN Reason: PAIN SCALE 1 TO 5 Last Admin: 05/25/18 21:00 Dose: 1 applicatio Nadolol (Corgard) 10 mg PO DAILY [facility] Last Admin: 05/26/18 17:52 Dose: 10 mg Ondansetron HCl (Zofran Inj) 4 mg IV.PUSH Q6H PRN PRN Reason: NAUSEA OR VOMITING Last Admin: 05/26/18 00:34 Dose: 4 mg Pantoprazole Sodium (Protonix Inj) 40 mg IV.PUSH Q12H [facility] Last Admin: 05/29/18 05:27 Dose: 40 mg Phenobarbital (Phenobarbital) 32.4 mg PO DAILY [facility] Last Admin: 05/29/18 09:21 Dose: 32.4 mg Pioglitazone HCl (Actos) 15 mg PO DAILY [facility] Last Admin: 05/29/18 09:21 Dose: 15 mg Pravastatin Sodium (Pravachol) 20 mg PO QPM [facility] Last Admin: 05/28/18 17:07 Dose: 20 mg Rifaximin (Xifaxan) 550 mg PO DAILY [facility] Last Admin: 05/29/18 09:21 Dose: 550 mg Sennosides (Senokot) 17.2 mg PO Q12H PRN PRN Reason: Moderate Constipation Ursodiol (Actigall) 300 mg PO BID [facility] Last Admin: 05/29/18 09:20 Dose: 300 mg <Maggie Jenkins - Last Filed: 05/29/18 09:43> Active Medications: Active Medications Acetaminophen (Tylenol) 650 mg PO Q4H PRN PRN Reason: pain 1-10/fever > 100.4 Last Admin: 05/29/18 05:26 Dose: 650 mg Al Hydroxide/Mg Hydroxide (Milk Of Magnesia Liq) 30 ml PO Q12H PRN PRN Reason: Mild Constipation Last Admin: 05/27/18 09:05 Dose: 30 ml Bisacodyl (Dulcolax Supp) 10 mg RECTAL DAILY PRN PRN Reason: SEVERE CONSITIPATION Dextrose (D50w Vial) 50 ml IV.PUSH UNSCH PRN PRN Reason: PER HYPOGLYCEMIA PROTOCOL Furosemide (Lasix) 20 mg PO DAILY [facility] Last Admin: 05/29/18 09:21 Dose: 20 mg Glucagon (Glucagon Inj) 1 mg OTHER PRN PRN PRN Reason: for Hypoglycemia Protocol Insulin Aspart (Novolog Insulin Correctional Sugar Inj) 0 unit SQ ACHS [facility]; Protocol Last Admin: 05/29/18 09:18 Dose: Not Given Lactulose (Lactulose Liq) 30 ml PO DAILY PRN PRN Reason: SEVERE CONSITIPATION Losartan Potassium (Cozaar) 50 mg PO DAILY [facility] Last Admin: 05/26/18 08:47 Dose: 50 mg Menthol/Methyl Salicylate (Richard Stuart Oint) 1 applicatio TOPICAL UNSCH PRN PRN Reason: PAIN SCALE 1 TO 5 Last Admin: 05/25/18 21:00 Dose: 1 applicatio Nadolol (Corgard) 10 mg PO DAILY [facility] Last Admin: 05/26/18 17:52 Dose: 10 mg Ondansetron HCl (Zofran Inj) 4 mg IV.PUSH Q6H PRN PRN Reason: NAUSEA OR VOMITING Last Admin: 05/26/18 00:34 Dose: 4 mg Pantoprazole Sodium (Protonix Inj) 40 mg IV.PUSH Q12H [facility] Last Admin: 05/29/18 05:27 Dose: 40 mg Phenobarbital (Phenobarbital) 32.4 mg PO DAILY [facility] Last Admin: 05/29/18 09:21 Dose: 32.4 mg Pioglitazone HCl (Actos) 15 mg PO DAILY [facility] Last Admin: 05/29/18 09:21 Dose: 15 mg Pravastatin Sodium (Pravachol) 20 mg PO QPM [facility] Last Admin: 05/28/18 17:07 Dose: 20 mg Rifaximin (Xifaxan) 550 mg PO DAILY [facility] Last Admin: 05/29/18 09:21 Dose: 550 mg Sennosides (Senokot) 17.2 mg PO Q12H PRN PRN Reason: Moderate Constipation Ursodiol (Actigall) 300 mg PO BID [facility] Last Admin: 05/29/18 09:20 Dose: 300 mg <Hemaidan,Ammar - Last Filed: 05/29/18 10:24> Allergies Allergy/AdvReac Type Severity Reaction Status Date / Time No Known Allergies Allergy Verified 04/04/18 09:00 Home Medications Medication Instructions Recorded Confirmed Type phenobarbital 32.4 mg PO DAILY 05/20/18 05/20/18 History pioglitazone 15 mg PO DAILY 05/20/18 05/20/18 History rifaximin [Xifaxan] 550 mg PO DAILY 05/20/18 05/20/18 History simvastatin 20 mg PO QPM 05/20/18 05/20/18 History ursodiol 300 mg PO BID 05/20/18 05/20/18 History Exam Vital signs: Vital Signs 05/28/18 11:07 05/28/18 15:07 05/28/18 16:00 Temperature 97.0 F L 97.7 F Pulse Rate 55 L 59 L Respiratory Rate 18 20 20 Blood Pressure 102/45 L 111/52 L Pulse Oximetry 97 05/28/18 16:10 05/28/18 17:48 05/28/18 19:42 Temperature Pulse Rate Respiratory Rate 20 Blood Pressure Pulse Oximetry 95 92 L 05/28/18 20:00 05/28/18 21:43 05/29/18 00:00 Temperature 96.7 F L 97.1 F L Pulse Rate 53 L 56 L Respiratory Rate 18 18 Blood Pressure 112/54 L 102/57 L Pulse Oximetry 92 L 96 95 05/29/18 04:00 05/29/18 08:00 Temperature 96.6 F L 98.1 F Pulse Rate 62 55 L Respiratory Rate 18 16 Blood Pressure 151/66 H 111/52 L Pulse Oximetry 92 L 92 L Intake & Output 05/28/18 05/29/18 05/29/18 18:59 06:59 18:59 Intake Total 1110 / 1110 340 / 340 Output Total 600 / 600 1000 / 1000 Balance 510 / 510 -660 / -660 Weight 63.4 kg Intake: Oral 1110 / 1110 340 / 340 Output: Urine 600 / 600 1000 / 1000 Other: Date of Last Bowel Movement 05/27/18 05/29/18 <Maggie Jenkins - Last Filed: 05/29/18 09:43> Vital signs: Vital Signs 05/28/18 11:07 05/28/18 15:07 05/28/18 16:00 Temperature 97.0 F L 97.7 F Pulse Rate 55 L 59 L Respiratory Rate 18 20 20 Blood Pressure 102/45 L 111/52 L Pulse Oximetry 97 05/28/18 16:10 05/28/18 17:48 05/28/18 19:42 Temperature Pulse Rate Respiratory Rate 20 Blood Pressure Pulse Oximetry 95 92 L 05/28/18 20:00 05/28/18 21:43 05/29/18 00:00 Temperature 96.7 F L 97.1 F L Pulse Rate 53 L 56 L Respiratory Rate 18 18 Blood Pressure 112/54 L 102/57 L Pulse Oximetry 92 L 96 95 05/29/18 04:00 05/29/18 08:00 Temperature 96.6 F L 98.1 F Pulse Rate 62 55 L Respiratory Rate 18 16 Blood Pressure 151/66 H 111/52 L Pulse Oximetry 92 L 92 L Intake & Output 05/28/18 05/29/18 05/29/18 18:59 06:59 18:59 Intake Total 1110 / 1110 340 / 340 Output Total 600 / 600 1000 / 1000 Balance 510 / 510 -660 / -660 Weight 63.4 kg Intake: Oral 1110 / 1110 340 / 340 Output: Urine 600 / 600 1000 / 1000 Other: Date of Last Bowel Movement 05/27/18 05/29/18 <Chauncey Askew - Last Filed: 05/29/18 10:24> Results - Labs CBC & Chem 7: 05/29/18 06:00 05/29/18 06:00 Labs: Laboratory Results - last 24 hr 05/28/18 05/28/18 05/28/18 11:17 15:41 16:20 Hgb Hct Sodium Potassium Chloride Carbon Dioxide Anion Gap BUN Creatinine Estimated GFR POC Glucose 133 H 197 H Random Glucose Calcium Prot Corrected Calcium Magnesium Total Protein Urine Color Yellow Urine Clarity Clear Urine pH 5.5 Ur Specific [place] Less/equal 1.005 Urine Protein Negative Urine Glucose (UA) Negative Urine Ketones Negative Urine Occult Blood Large H Urine Nitrate Negative Urine Bilirubin Negative Urine Urobilinogen 0.2 Ur Leukocyte Esterase Negative Urine RBC 4-15 H Urine WBC 0-5 Ur Squamous Epith Cells 0-5 Urine Bacteria Occasional H Ur Microscopic Review Microscopic reviewed 05/28/18 05/29/18 05/29/18 21:46 06:00 06:00 Hgb 8.0 L Hct 23.5 L Sodium 136 Potassium 4.9 Chloride 103 Carbon Dioxide 24.8 Anion Gap 8 BUN 62 H Creatinine 1.60 H Estimated GFR 30 L POC Glucose 139 H Random Glucose 100 Calcium 7.4 L* Prot Corrected Calcium 8.5 Magnesium 3.0 H Total Protein 5.2 L Urine Color Urine Clarity Urine pH Ur Specific [place] Urine Protein Urine Glucose (UA) Urine Ketones Urine Occult Blood Urine Nitrate Urine Bilirubin Urine Urobilinogen Ur Leukocyte Esterase Urine RBC Urine WBC Ur Squamous Epith Cells Urine Bacteria Ur Microscopic Review 05/29/18 07:32 Hgb Hct Sodium Potassium Chloride Carbon Dioxide Anion Gap BUN Creatinine Estimated GFR POC Glucose 118 H Random Glucose Calcium Prot Corrected Calcium Magnesium Total Protein Urine Color Urine Clarity Urine pH Ur Specific [place] Urine Protein Urine Glucose (UA) Urine Ketones Urine Occult Blood Urine Nitrate Urine Bilirubin Urine Urobilinogen Ur Leukocyte Esterase Urine RBC Urine WBC Ur Squamous Epith Cells Urine Bacteria Ur Microscopic Review <Maggie Jenkins - Last Filed: 05/29/18 09:43> - Labs CBC & Chem 7: 05/29/18 06:00 05/29/18 06:00 Labs: Laboratory Results - last 24 hr 05/28/18 05/28/18 05/28/18 11:17 15:41 16:20 Hgb Hct Sodium Potassium Chloride Carbon Dioxide Anion Gap BUN Creatinine Estimated GFR POC Glucose 133 H 197 H Random Glucose Calcium Prot Corrected Calcium Magnesium Total Protein Urine Color Yellow Urine Clarity Clear Urine pH 5.5 Ur Specific [place] Less/equal 1.005 Urine Protein Negative Urine Glucose (UA) Negative Urine Ketones Negative Urine Occult Blood Large H Urine Nitrate Negative Urine Bilirubin Negative Urine Urobilinogen 0.2 Ur Leukocyte Esterase Negative Urine RBC 4-15 H Urine WBC 0-5 Ur Squamous Epith Cells 0-5 Urine Bacteria Occasional H Ur Microscopic Review Microscopic reviewed 05/28/18 05/29/18 05/29/18 21:46 06:00 06:00 Hgb 8.0 L Hct 23.5 L Sodium 136 Potassium 4.9 Chloride 103 Carbon Dioxide 24.8 Anion Gap 8 BUN 62 H Creatinine 1.60 H Estimated GFR 30 L POC Glucose 139 H Random Glucose 100 Calcium 7.4 L* Prot Corrected Calcium 8.5 Magnesium 3.0 H Total Protein 5.2 L Urine Color Urine Clarity Urine pH Ur Specific [place] Urine Protein Urine Glucose (UA) Urine Ketones Urine Occult Blood Urine Nitrate Urine Bilirubin Urine Urobilinogen Ur Leukocyte Esterase Urine RBC Urine WBC Ur Squamous Epith Cells Urine Bacteria Ur Microscopic Review 05/29/18 07:32 Hgb Hct Sodium Potassium Chloride Carbon Dioxide Anion Gap BUN Creatinine Estimated GFR POC Glucose 118 H Random Glucose Calcium Prot Corrected Calcium Magnesium Total Protein Urine Color Urine Clarity Urine pH Ur Specific [place] Urine Protein Urine Glucose (UA) Urine Ketones Urine Occult Blood Urine Nitrate Urine Bilirubin Urine Urobilinogen Ur Leukocyte Esterase Urine RBC Urine WBC Ur Squamous Epith Cells Urine Bacteria Ur Microscopic Review <Chauncey Askew - Last Filed: 05/29/18 10:24>
--- NOTE | 2018-05-29 11:55 | P.PNIM ---
Subjective Interval history: Patient is currently in no acute distress. She does not have any significant complaints this morning. Patient had a dark bowel movement yesterday. Physical Exam Vital signs: Vital Signs 05/28/18 15:07 05/28/18 16:00 05/28/18 16:10 Temperature 97.7 F Pulse Rate 59 L Respiratory Rate 20 20 Blood Pressure 111/52 L Pulse Oximetry 97 95 05/28/18 17:48 05/28/18 19:42 05/28/18 20:00 Temperature 96.7 F L Pulse Rate 53 L Respiratory Rate 20 18 Blood Pressure 112/54 L Pulse Oximetry 92 L 92 L 05/28/18 21:43 05/29/18 00:00 05/29/18 04:00 Temperature 97.1 F L 96.6 F L Pulse Rate 56 L 62 Respiratory Rate 18 18 Blood Pressure 102/57 L 151/66 H Pulse Oximetry 96 95 92 L 05/29/18 08:00 Temperature 98.1 F Pulse Rate 55 L Respiratory Rate 16 Blood Pressure 111/52 L Pulse Oximetry 92 L Intake & Output 05/28/18 05/29/18 05/29/18 18:59 06:59 18:59 Intake Total 1110 / 1110 340 / 340 Output Total 600 / 600 1000 / 1000 Balance 510 / 510 -660 / -660 Weight 63.4 kg Intake: Oral 1110 / 1110 340 / 340 Output: Urine 600 / 600 1000 / 1000 Other: Date of Last Bowel Movement 05/27/18 05/29/18 05/29/18 Narrative: General patient in no acute distress HEENT extraocular movements are intact, clear oropharyngeal mucosa, nasal cannula in place. Cardiovascular S1-S2 audible Respiratory clear to auscultation bilaterally Abdomen soft, nontender, nondistended, normal bowel sounds, no abdominal pain Extremities no edema 2+ distal pulses in bilateral upper and lower extremities Neuro patient moves all 4 extremities and sensation is intact bilaterally. - Urinary Catheter Management Straight Cath placed during this visit: yes, but has since been removed by the nurse Reason for continuing: Not indwelling catheter Insertion date: 05/20/18 Insertion time: 18:00 Removal date: 05/20/18 Removal time: 18:01 Results - Labs CBC & Chem 7: 05/29/18 06:00 05/29/18 06:00 Laboratory Results - last 24 hr 05/28/18 05/28/18 05/28/18 15:41 16:20 21:46 Hgb Hct Sodium Potassium Chloride Carbon Dioxide Anion Gap BUN Creatinine Estimated GFR POC Glucose 197 H 139 H Random Glucose Calcium Prot Corrected Calcium Magnesium Total Protein Urine Color Yellow Urine Clarity Clear Urine pH 5.5 Ur Specific Reading Less/equal 1.005 Urine Protein Negative Urine Glucose (UA) Negative Urine Ketones Negative Urine Occult Blood Large H Urine Nitrate Negative Urine Bilirubin Negative Urine Urobilinogen 0.2 Ur Leukocyte Esterase Negative Urine RBC 4-15 H Urine WBC 0-5 Ur Squamous Epith Cells 0-5 Urine Bacteria Occasional H Ur Microscopic Review Microscopic reviewed 05/29/18 05/29/18 05/29/18 06:00 06:00 07:32 Hgb 8.0 L Hct 23.5 L Sodium 136 Potassium 4.9 Chloride 103 Carbon Dioxide 24.8 Anion Gap 8 BUN 62 H Creatinine 1.60 H Estimated GFR 30 L POC Glucose 118 H Random Glucose 100 Calcium 7.4 L* Prot Corrected Calcium 8.5 Magnesium 3.0 H Total Protein 5.2 L Urine Color Urine Clarity Urine pH Ur Specific Reading Urine Protein Urine Glucose (UA) Urine Ketones Urine Occult Blood Urine Nitrate Urine Bilirubin Urine Urobilinogen Ur Leukocyte Esterase Urine RBC Urine WBC Ur Squamous Epith Cells Urine Bacteria Ur Microscopic Review 05/29/18 11:28 Hgb Hct Sodium Potassium Chloride Carbon Dioxide Anion Gap BUN Creatinine Estimated GFR POC Glucose 236 H Random Glucose Calcium Prot Corrected Calcium Magnesium Total Protein Urine Color Urine Clarity Urine pH Ur Specific Reading Urine Protein Urine Glucose (UA) Urine Ketones Urine Occult Blood Urine Nitrate Urine Bilirubin Urine Urobilinogen Ur Leukocyte Esterase Urine RBC Urine WBC Ur Squamous Epith Cells Urine Bacteria Ur Microscopic Review Microbiology 05/28/18 16:20 Stool Stool Occult Blood ([facility]) - Final Hemoccult positive - Procedures See above. Assessment and Plan - Assessment (1) UTI (urinary tract infection) Code(s): N39.0 - Urinary tract infection, site not specified Status: Acute (2) HTN (hypertension) Code(s): I10 - Essential (primary) hypertension Status: Acute (3) Physical deconditioning Code(s): R53.81 - Other malaise Status: Acute - Plan This patient is an 87-year-old female with a diagnosis of hyperlipidemia, diabetes, stomach cancer status post resection in the past. The patient presented with complaints of 1 week history of weakness. She was found to have a urinary tract infection and admitted for treatment. 1. Normocytic anemia Since admission the patient had an approximately three-point drop in her hemoglobin. I evaluated the patient and the nurse showed me a sample of the patient's stool which appears to be black. Stool guaiac is positive. Patient will be started on Protonix 40 mill grams IV twice daily. GI was consulted to evaluate the patient. The plan is for the patient to undergo an EGD possibly tomorrow. We will keep the patient n.p.o. past midnight. 2. Acute kidney injury The patient's chest x-ray from yesterday appears to show pulmonary vascular congestion. BNP was elevated. Patient did have one dose of Lasix IV yesterday and had a proximally 1 L of urine output after the Lasix dose. No significant change in the patient's serum creatinine. Protonix changed to twice daily IV. Patient does have a history of cirrhosis. We will be careful with giving IV Lasix to avoid potential hepatorenal syndrome. 3. Proteus UTI Patient was treated for her urinary tract infection. She completed her antibiotic course while in house. 4. Acute hypoxic respiratory failure Patient still requiring 1-2 L of supplemental oxygen. This could possibly be due to the pulmonary vascular congestion seen on chest x-ray. Continue p.o. Lasix. We will attempt to wean the patient off of supplemental oxygen. 5. Diabetes mellitus Continue insulin sliding scale. Diabetic diet 6. History of cirrhosis Continue rifaximin, p.o. Lasix, nadolol. No pharmacotherapy for DVT prophylaxis the patient is currently anemic, concern for possible GI bleed.
[2018-05-30] MEDS: Pantoprazole Inj 40 MG Vial IV.PUSH SCH ×3 (06:30→17:12)
[2018-05-30 07:10] LABS: Hematocrit 24.8 % (35.0-46.0); Hemoglobin 8.2 gm/dL (11.6-15.3)
[2018-05-30] MEDS: Insulin NovoLOG Aspart Correctional Sugar Inj SQ SCH ×4 (07:49→20:18)
[2018-05-30] MEDS: Furosemide 20 MG Tablet PO SCH (08:05)
[2018-05-30] MEDS: rifAXIMin 550 MG Tablet PO SCH (08:05)
[2018-05-30] MEDS: Acetaminophen 325 MG Tablet PO PRN (08:06)
[2018-05-30 10:14] LABS: Potassium 4.7 meq/L (3.5-5.1)
[2018-05-30 10:16] LABS: Calcium 7.7 mg/dL (8.5-10.1)
[2018-05-30 10:17] LABS: Carbon Dioxide 25.1 meq/L (21.0-32.0)
--- NOTE | 2018-05-30 10:56 | P.PNGI ---
Subjective Interval history: Mrs. Whitehead is more distressed and in more pain today compared to yesterday. She is requested pain medication for pain relief.Her bilateral lower quadrant/ pelvic pain is 10/10 on the pain scale. Tylenol has not relived pain today. She states that she has increased urinary frequency but no hematuria or dysuria or back pain. She denies nausea or vomiting or dysphagia.She does not recall her last bowel movement and has not consumed any food today. Her Hgb slightly increased to 8.2 with a Hct of 24.8 today. PE: Mrs. Whitehead is a pale female who is sitting in bed in acute distress Vitals:BMI 28 HR: 61 RR:19 BP: 148/65 O2 stat on room air: 92 HEENT: conjunctiva pale, eyes PERRLA, oropharynx has no obstructions, pink and moist mucosa, hard palate protrusion Heart: S1. S2, regular rate and rhythm no murmurs, rubs or gallops Ab: small scar under the umbilicus and a RLQ scar, bowel sounds present in all 4 quadrants, abdomen was soft, pain to light and deep palpation in the RLQ and LLQ and bilateral pelvic girdle Neuro: AXO x2, bilateral essential tremor, MSK: several ecchymosis on arms bilaterally, no peripheral edema, peripheral pulses palpable Assessment: Mrs. Whitehead is an 87 year old female with history of anemia, heme + stools with abdominal and pelvic pain. 1. Heme + stool and anemia -colonoscopy and EGD scheduled for tomorrow 05/31 to find source of bleed 2. Lower quadrant ab and pelvic pain -UTI-add antibiotics, possibly TMP-SMX or ciprofloxacin, pain management with Tylenol, maybe stronger medication like tramadol 3. Confusion: -possible Delirium, continue re-orientation of the patient -possible dementia <Maggie Jenkins - Last Filed: 05/30/18 12:01> Interval history: Patient was seen and examined, agree with above note, I examined the patient and interview her personally with the medical student, I read the note and approve it, patient will need upper endoscopy tomorrow and colonoscopy <Chauncey Askew - Last Filed: 05/30/18 16:08> Physical Exam Vital signs: Vital Signs 05/29/18 12:00 05/29/18 16:00 05/29/18 20:00 Temperature 97.4 F L 98.4 F 97.7 F Pulse Rate 59 L 61 61 Respiratory Rate 12 14 20 Blood Pressure 104/59 L 132/62 152/72 H Pulse Oximetry 92 L 91 L 90 L 05/30/18 00:00 05/30/18 08:00 05/30/18 09:25 Temperature 97.3 F L 96.6 F L Pulse Rate 79 61 Respiratory Rate 21 19 Blood Pressure 127/58 L 148/65 H Pulse Oximetry 93 L 92 L 92 L Intake & Output 05/29/18 05/30/18 05/30/18 18:59 06:59 18:59 Intake Total 900 / 900 Output Total 1095 / 1095 200 / 200 Balance -195 / -195 -200 / -200 Weight 74 kg Intake: Oral 900 / 900 Output: Urine 1095 / 1095 200 / 200 Other: # Urine Diapers 1 Date of Last Bowel Movement 05/29/18 05/29/18 - Urinary Catheter Management Straight Cath placed during this visit: yes, but has since been removed by the nurse Reason for continuing: Not indwelling catheter Insertion date: 05/20/18 Insertion time: 18:00 Removal date: 05/20/18 Removal time: 18:01 <Maggie Jenkins - Last Filed: 05/30/18 12:01> Vital signs: Vital Signs 05/29/18 20:00 05/30/18 00:00 05/30/18 08:00 Temperature 97.7 F 97.3 F L 96.6 F L Pulse Rate 61 79 61 Respiratory Rate 20 21 19 Blood Pressure 152/72 H 127/58 L 148/65 H Pulse Oximetry 90 L 93 L 92 L 05/30/18 09:25 05/30/18 12:00 Temperature 96.8 F L Pulse Rate 53 L Respiratory Rate 17 Blood Pressure 130/57 L Pulse Oximetry 92 L 94 L Intake & Output 05/29/18 05/30/18 05/30/18 18:59 06:59 18:59 Intake Total 900 / 900 Output Total 1095 / 1095 200 / 200 Balance -195 / -195 -200 / -200 Weight 74 kg Intake: Oral 900 / 900 Output: Urine 1095 / 1095 200 / 200 Other: # Urine Diapers 1 Date of Last Bowel Movement 11/05/29/18 05/29/18 - Urinary Catheter Management Straight Cath placed during this visit: no <Chauncey Askew - Last Filed: 05/30/18 16:08> Results - Labs CBC & Chem 7: 05/30/18 06:00 05/30/18 06:00 Laboratory Results - last 24 hr 05/29/18 05/29/18 05/29/18 11:28 16:21 20:23 Hgb Hct Sodium Potassium Chloride Carbon Dioxide Anion Gap BUN Creatinine Estimated GFR POC Glucose 236 H 109 124 H Random Glucose Calcium Magnesium 05/30/18 05/30/18 05/30/18 06:00 06:00 07:23 Hgb 8.2 L Hct 24.8 L Sodium 140 Potassium 4.7 Chloride 105 Carbon Dioxide 25.1 Anion Gap 10 BUN 61 H Creatinine 1.90 H Estimated GFR 25 L POC Glucose 119 H Random Glucose 96 Calcium 7.7 L Magnesium 3.0 H - Procedures See above. <Maggie Jenkins - Last Filed: 05/30/18 12:01> - Labs CBC & Chem 7: 05/30/18 06:00 05/30/18 06:00 Laboratory Results - last 24 hr 05/29/18 05/29/18 05/30/18 16:21 20:23 06:00 Hgb 8.2 L Hct 24.8 L Sodium Potassium Chloride Carbon Dioxide Anion Gap BUN Creatinine Estimated GFR POC Glucose 109 124 H Random Glucose Calcium Magnesium 05/30/18 05/30/18 05/30/18 06:00 07:23 11:39 Hgb Hct Sodium 140 Potassium 4.7 Chloride 105 Carbon Dioxide 25.1 Anion Gap 10 BUN 61 H Creatinine 1.90 H Estimated GFR 25 L POC Glucose 119 H 122 H Random Glucose 96 Calcium 7.7 L Magnesium 3.0 H - Imaging Impressions Abdomen/Bladder Ultrasound 05/30/18 00:00 CONCLUSION: 1. Echogenic kidneys without evidence of hydronephrosis or solid mass. <Chauncey Askew - Last Filed: 05/30/18 16:08>
--- NOTE | 2018-05-30 10:58 | P.PNIM ---
Subjective Interval history: Patient complains of mild abdominal pain today. She does not have any other complaints. Physical Exam Vital signs: Vital Signs 05/29/18 12:00 05/29/18 16:00 05/29/18 20:00 Temperature 97.4 F L 98.4 F 97.7 F Pulse Rate 59 L 61 61 Respiratory Rate 12 14 20 Blood Pressure 104/59 L 132/62 152/72 H Pulse Oximetry 92 L 91 L 90 L 05/30/18 00:00 05/30/18 08:00 05/30/18 09:25 Temperature 97.3 F L 96.6 F L Pulse Rate 79 61 Respiratory Rate 21 19 Blood Pressure 127/58 L 148/65 H Pulse Oximetry 93 L 92 L 92 L Intake & Output 05/29/18 05/30/18 05/30/18 18:59 06:59 18:59 Intake Total 900 / 900 Output Total 1095 / 1095 200 / 200 Balance -195 / -195 -200 / -200 Weight 74 kg Intake: Oral 900 / 900 Output: Urine 1095 / 1095 200 / 200 Other: # Urine Diapers 1 Date of Last Bowel Movement 05/29/18 05/29/18 Narrative: General patient in no acute distress HEENT extraocular movements are intact, clear oropharyngeal mucosa, nasal cannula in place. Cardiovascular S1-S2 audible Respiratory clear to auscultation bilaterally Abdomen soft, nontender, nondistended, normal bowel sounds, no abdominal pain Extremities no edema 2+ distal pulses in bilateral upper and lower extremities Neuro patient moves all 4 extremities and sensation is intact bilaterally. - Urinary Catheter Management Straight Cath placed during this visit: yes, but has since been removed by the nurse Reason for continuing: Not indwelling catheter Insertion date: 05/20/18 Insertion time: 18:00 Removal date: 05/20/18 Removal time: 18:01 Results - Labs CBC & Chem 7: 05/30/18 06:00 05/30/18 06:00 Laboratory Results - last 24 hr 05/29/18 05/29/18 05/29/18 11:28 16:21 20:23 Hgb Hct Sodium Potassium Chloride Carbon Dioxide Anion Gap BUN Creatinine Estimated GFR POC Glucose 236 H 109 124 H Random Glucose Calcium Magnesium 05/30/18 05/30/18 05/30/18 06:00 06:00 07:23 Hgb 8.2 L Hct 24.8 L Sodium 140 Potassium 4.7 Chloride 105 Carbon Dioxide 25.1 Anion Gap 10 BUN 61 H Creatinine 1.90 H Estimated GFR 25 L POC Glucose 119 H Random Glucose 96 Calcium 7.7 L Magnesium 3.0 H - Procedures See above. Assessment and Plan - Assessment (1) UTI (urinary tract infection) Code(s): N39.0 - Urinary tract infection, site not specified Status: Acute (2) HTN (hypertension) Code(s): I10 - Essential (primary) hypertension Status: Acute (3) Physical deconditioning Code(s): R53.81 - Other malaise Status: Acute - Plan This patient is an 87-year-old female with a diagnosis of hyperlipidemia, diabetes, stomach cancer status post resection in the past. The patient presented with complaints of 1 week history of weakness. She was found to have a urinary tract infection and admitted for treatment. 1. Normocytic anemia Patient had a significant drop in her hemoglobin since admission. She has been having black stools over the past couple days. GI consulted, plan is for the patient to undergo EGD and possible colonoscopy today. Currently on IV Protonix. We will follow-up with GI after the colonoscopy and EGD. 2. Acute kidney injury Patient serum creatinine has increased to 1.9 today. This could possibly be due to GI bleed. Nephrology consulted to evaluate the patient. Patient does have a history of cirrhosis. Lasix will be held. I will follow-up with nephrology for the recommendations. 3. Proteus UTI Patient was treated for her urinary tract infection. She completed her antibiotic course while in house. 4. Acute hypoxic respiratory failure Patient is currently on room air without any complaints of shortness of breath. 5. Diabetes mellitus Continue insulin sliding scale. Diabetic diet 6. History of cirrhosis Continue rifaximin, p.o. Lasix, nadolol. No pharmacotherapy for DVT prophylaxis the patient is currently anemic, concern for possible GI bleed.
--- NOTE | 2018-05-30 14:53 | P.CONNP ---
<JannaJennifer - Last Filed: 05/30/18 14:19> History of Present Illness Service: Nephrology Consult date: 05/30/18 Requesting Physician: Leanna Barfield Reason for Consult: Acute kidney injury - Gastrointestional bleed Primary Care Provider: UNKNOWN History of Present Illness: Patient is a 87 year old female with a past medical history of diabetes, hyperlipidemia, and liver disease. Presented to hospital with progressive weakness. Was found to have a urinary tract infection which may have contributed to weakness. During her hospital course she developed worsening anemia and black stools. Plan is for EGD and colonoscopy, she is currently NPO. Nephrology is consulted for acute kidney injury with creatinine level of 1.90, potassium level of 4.7. Non oliguric with a urinary output of 1.2 liters in 24 hours. No previous history of kidney disease with a admission creatinine of less than 1. Patient denies any shortness of breath, chest pain, nausea, or vomiting. Abdominal pain noted on palpation. Review of Systems All other systems reviewed negative except as stated in HPI PMFSH - History History Provided By: Patient - Medical History Medical History: Medical History (Last Reviewed 05/25/18 @ 15:31 by Vishal Hickman) Diabetes High cholesterol History of stomach cancer Liver disease - Surgical History Surgical History: Surgical History (Last Reviewed 05/25/18 @ 15:31 by Vishal Hickman) Hx of left mastectomy - Family History Family History: Family History (Last Updated 05/21/18 @ 01:04 by Hammad Woodson MD) Father Pulmonary embolism Mother Cancer - Tobacco History Second Hand Smoke Exposure: No Smoking Status: Never smoker - Alcohol History How Often Do You Have a Drink Containing Alcohol: Never - Substance Use History Substance History: No History of Abuse - Travel History Recent Travel in the [place] Within the Last 8 Weeks: No Recent Travel Out of the Country Within the Last 8 Weeks: No - Immunization History Tetanus Immunization: >5 Years Hx Influenza Vaccine This Season: Yes Medications and Allergies Allergies Allergy/AdvReac Type Severity Reaction Status Date / Time No Known Allergies Allergy Verified 04/04/18 09:00 Home Medications Medication Instructions Recorded Confirmed Type phenobarbital 32.4 mg PO DAILY 05/20/18 05/20/18 History pioglitazone 15 mg PO DAILY 05/20/18 05/20/18 History rifaximin [Xifaxan] 550 mg PO DAILY 05/20/18 05/20/18 History simvastatin 20 mg PO QPM 05/20/18 05/20/18 History ursodiol 300 mg PO BID 05/20/18 05/20/18 History Active Medications: Active Medications Acetaminophen (Tylenol) 650 mg PO Q4H PRN PRN Reason: PAIN SCALE 1 TO 5 Last Admin: 05/30/18 08:06 Dose: 650 mg Hydrocodone Bitart/Acetaminophen ([place] 5/325) 1 tab PO Q8H PRN PRN Reason: PAIN SCALE 6 TO 10 Last Admin: 05/30/18 10:08 Dose: 1 tab Al Hydroxide/Mg Hydroxide (Milk Of Magnesia Liq) 30 ml PO Q12H PRN PRN Reason: Mild Constipation Last Admin: 05/27/18 09:05 Dose: 30 ml Bisacodyl (Dulcolax Supp) 10 mg RECTAL DAILY PRN PRN Reason: SEVERE CONSITIPATION Dextrose (D50w Vial) 50 ml IV.PUSH UNSCH PRN PRN Reason: PER HYPOGLYCEMIA PROTOCOL Glucagon (Glucagon Inj) 1 mg OTHER PRN PRN PRN Reason: for Hypoglycemia Protocol Insulin Aspart (Novolog Insulin Correctional Sugar Inj) 0 unit SQ ACHS [facility]; Protocol Last Admin: 05/30/18 13:45 Dose: Not Given Lactulose (Lactulose Liq) 30 ml PO DAILY PRN PRN Reason: SEVERE CONSITIPATION Losartan Potassium (Cozaar) 50 mg PO DAILY [facility] Last Admin: 05/26/18 08:47 Dose: 50 mg Menthol/Methyl Salicylate (Richard Stuart Oint) 1 applicatio TOPICAL UNSCH PRN PRN Reason: PAIN SCALE 1 TO 5 Last Admin: 05/29/18 20:14 Dose: 1 applicatio Nadolol (Corgard) 10 mg PO DAILY [facility] Last Admin: 05/26/18 17:52 Dose: 10 mg Ondansetron HCl (Zofran Inj) 4 mg IV.PUSH Q6H PRN PRN Reason: NAUSEA OR VOMITING Last Admin: 05/26/18 00:34 Dose: 4 mg Pantoprazole Sodium (Protonix Inj) 40 mg IV.PUSH Q12H [facility] Last Admin: 05/30/18 06:31 Dose: Not Given Phenobarbital (Phenobarbital) 32.4 mg PO DAILY [facility] Last Admin: 05/30/18 08:05 Dose: 32.4 mg Pioglitazone HCl (Actos) 15 mg PO DAILY [facility] Last Admin: 05/30/18 08:06 Dose: 15 mg Pravastatin Sodium (Pravachol) 20 mg PO QPM [facility] Last Admin: 05/29/18 17:12 Dose: 20 mg Rifaximin (Xifaxan) 550 mg PO DAILY [facility] Last Admin: 05/30/18 08:05 Dose: 550 mg Sennosides (Senokot) 17.2 mg PO Q12H PRN PRN Reason: Moderate Constipation Ursodiol (Actigall) 300 mg PO BID [facility] Last Admin: 05/30/18 08:05 Dose: 300 mg Exam Vital signs: Vital Signs 05/29/18 16:00 05/29/18 20:00 05/30/18 00:00 Temperature 98.4 F 97.7 F 97.3 F L Pulse Rate 61 61 79 Respiratory Rate 14 20 21 Blood Pressure 132/62 152/72 H 127/58 L Pulse Oximetry 91 L 90 L 93 L 05/30/18 08:00 05/30/18 09:25 05/30/18 12:00 Temperature 96.6 F L 96.8 F L Pulse Rate 61 53 L Respiratory Rate 19 17 Blood Pressure 148/65 H 130/57 L Pulse Oximetry 92 L 92 L 94 L Intake & Output 05/29/18 05/30/18 05/30/18 18:59 06:59 18:59 Intake Total 900 / 900 Output Total 1095 / 1095 200 / 200 Balance -195 / -195 -200 / -200 Weight 74 kg Intake: Oral 900 / 900 Output: Urine 1095 / 1095 200 / 200 Other: # Urine Diapers 1 Date of Last Bowel Movement 05/29/18 05/29/18 05/29/18 Narrative: GENERAL: Awake and alert. SKIN: Warm and dry. NECK: Supple, trachea midline. No JVD. CARDIOVASCULAR: Regular rate and rhythm without murmurs, gallops, or rubs. RESPIRATORY: Breath sounds equal bilaterally. No accessory muscle use. GASTROINTESTINAL: Abdomen soft, nondistended. Positive BS. MUSCULOSKELETAL: No cyanosis, or edema. BACK: Nontender without obvious deformity. No CVA tenderness. Results - Lab Results 05/30/18 06:00 05/30/18 06:00 Most recent lab results Calcium 7.7 mg/dL (8.5-10.1) L 05/30/18 06:00 Magnesium 3.0 mg/dL (1.5-2.5) H 05/30/18 06:00 - Image Kidney/bladder ultrasound: pending Assessment and Plan - Assessment (1) Acute kidney injury Code(s): N17.9 - Acute kidney failure, unspecified Status: Acute Plan: Acute kidney injury with a creatinine of 1.90. No previous history of chronic kidney disease. Admission creatinine of less than 1. Creatinine started to increase on the . Acute kidney injury possibly prerenal/ATN from anemia and GI losses vs vancomycin toxicity. Renal ultrsound ordered Maintain strict I+O Avoid nephrotoxins as possible Will order gentle hydration as patient is NPO and increasing creatinine, will watch closely for fluid overload. Continue to hold ARB Urine osmolality/sodium/creatinine/EOS ordered. Labs ordered for AM. (2) Diabetes Code(s): E11.9 - Type 2 diabetes mellitus without complications Status: Acute Plan: Well controlled. Recommend to maintain BS between 140 mg/dl to 180 mg/dl. (3) Gastrointestinal bleed Code(s): K92.2 - Gastrointestinal hemorrhage, unspecified Status: Acute Plan: NPO EGD and colonoscopy planned for tomorrow. <[place] - Last Filed: 05/31/18 14:18> History of Present Illness Primary Care Provider: UNKNOWN [facility] - Medical History Medical History: Medical History (Last Reviewed 05/25/18 @ 15:31 by Vishal Hickman) Diabetes High cholesterol History of stomach cancer Liver disease - Surgical History Surgical History: Surgical History (Last Reviewed 05/25/18 @ 15:31 by Vishal Hickman) Hx of left mastectomy - Family History Family History: Family History (Last Updated 05/21/18 @ 01:04 by Hammad Woodson MD) Father Pulmonary embolism Mother Cancer Medications and Allergies Active Medications: Active Medications Acetaminophen (Tylenol) 650 mg PO Q4H PRN PRN Reason: PAIN SCALE 1 TO 5 Last Admin: 05/30/18 08:06 Dose: 650 mg Hydrocodone Bitart/Acetaminophen ([place] 5/325) 1 tab PO Q8H PRN PRN Reason: PAIN SCALE 6 TO 10 Last Admin: 05/31/18 06:11 Dose: 1 tab Al Hydroxide/Mg Hydroxide (Milk Of Magnesia Liq) 30 ml PO Q12H PRN PRN Reason: Mild Constipation Last Admin: 05/27/18 09:05 Dose: 30 ml Bisacodyl (Dulcolax Supp) 10 mg RECTAL DAILY PRN PRN Reason: SEVERE CONSITIPATION Dextrose (D50w Vial) 50 ml IV.PUSH UNSCH PRN PRN Reason: PER HYPOGLYCEMIA PROTOCOL Glucagon (Glucagon Inj) 1 mg OTHER PRN PRN PRN Reason: for Hypoglycemia Protocol Sodium Chloride (Ns Inj) 1,000 mls @ 50 mls/hr IV.CONT .Q20H [facility] Last Admin: 05/30/18 15:08 Dose: 50 mls/hr Sodium Chloride (Ns Inj) 250 mls @ 15 mls/hr IV.SIG ONCE [facility] Stop: 06/01/18 03:39 Lactated Ringer's (Lr 1000 Ml Inj) 1,000 mls @ 30 mls/hr IV.SIG .Q24H [facility] Stop: 06/01/18 12:59 Sodium Chloride (Ns Inj) 500 mls @ 30 mls/hr IV.SIG .Q10H [facility] Insulin Aspart (Novolog Insulin Correctional Sugar Inj) 0 unit SQ ACHS [facility]; Protocol Last Admin: 05/31/18 11:45 Dose: Not Given Lactulose (Lactulose Liq) 30 ml PO DAILY PRN PRN Reason: SEVERE CONSITIPATION Losartan Potassium (Cozaar) 50 mg PO DAILY [facility] Last Admin: 05/26/18 08:47 Dose: 50 mg Menthol/Methyl Salicylate (Richard Stuart Oint) 1 applicatio TOPICAL UNSCH PRN PRN Reason: PAIN SCALE 1 TO 5 Last Admin: 05/29/18 20:14 Dose: 1 applicatio Nadolol (Corgard) 10 mg PO DAILY [facility] Last Admin: 05/26/18 17:52 Dose: 10 mg Ondansetron HCl (Zofran Inj) 4 mg IV.PUSH Q6H PRN PRN Reason: NAUSEA OR VOMITING Last Admin: 05/26/18 00:34 Dose: 4 mg Pantoprazole Sodium (Protonix Inj) 40 mg IV.PUSH Q12H [facility] Last Admin: 05/31/18 06:06 Dose: 40 mg Phenobarbital (Phenobarbital) 32.4 mg PO DAILY [facility] Last Admin: 11/19/18 09:09 Dose: 32.4 mg Pioglitazone HCl (Actos) 15 mg PO DAILY [facility] Last Admin: 05/31/18 09:08 Dose: 15 mg Pravastatin Sodium (Pravachol) 20 mg PO QPM [facility] Last Admin: 05/30/18 17:11 Dose: 20 mg Rifaximin (Xifaxan) 550 mg PO DAILY [facility] Last Admin: 05/31/18 09:09 Dose: 550 mg Sennosides (Senokot) 17.2 mg PO Q12H PRN PRN Reason: Moderate Constipation Ursodiol (Actigall) 300 mg PO BID [facility] Last Admin: 05/31/18 09:09 Dose: 300 mg Exam Vital signs: Vital Signs 05/30/18 16:00 05/30/18 20:00 05/31/18 00:00 Temperature 96.8 F L 97.1 F L 97.1 F L Pulse Rate 57 L 58 L 69 Respiratory Rate 17 20 20 Blood Pressure 154/57 H 161/68 H 139/56 L Pulse Oximetry 93 L 93 L 94 L 05/31/18 08:00 05/31/18 08:44 05/31/18 11:47 Temperature 97.6 F 97.7 F Pulse Rate 79 70 Respiratory Rate 18 18 Blood Pressure 155/70 H 134/66 Pulse Oximetry 92 L 94 L 95 05/31/18 12:31 05/31/18 13:30 05/31/18 13:47 Temperature 98.0 F 98.0 F 97.9 F Pulse Rate 72 72 75 Respiratory Rate 20 20 18 Blood Pressure 148/74 H 148/74 H 159/64 H Pulse Oximetry 95 95 92 L 05/31/18 14:08 Temperature Pulse Rate 76 Respiratory Rate 18 Blood Pressure 165/66 H Pulse Oximetry Intake & Output 05/30/18 05/31/18 05/31/18 18:59 06:59 18:59 Intake Total Output Total 1250 / 1250 Balance -1250 / -1250 Weight 72.3 kg Intake: Intake (Blood Product) Amt Plt Pheresis B Leukoreduced Unit [id number] Output: Urine 1250 / 1250 Other: # Voids 2 Date of Last Bowel Movement 05/29/18 05/30/18 # Bowel Movements 2 Results - Lab Results 05/31/18 05:40 05/31/18 05:40 Most recent lab results Calcium 7.5 mg/dL (8.5-10.1) L 05/31/18 05:40 Phosphorus 3.1 mg/dL (2.5-4.9) 05/31/18 05:40 Magnesium 3.0 mg/dL (1.5-2.5) H 05/30/18 06:00 Assessment and Plan - Assessment (1) Acute kidney injury Code(s): N17.9 - Acute kidney failure, unspecified Status: Acute Plan: Patient seen and examined, agree with above. Patient has ASHIA, possibly pre renal. Check Urine sodium, osmolality. Start gentle IVF. Renal U/S. Follow the urine out put and BMP. (2) Diabetes Code(s): E11.9 - Type 2 diabetes mellitus without complications Status: Acute (3) Gastrointestinal bleed Code(s): K92.2 - Gastrointestinal hemorrhage, unspecified Status: Acute
[2018-05-30] MEDS: Sod Chloride 0.9% Inj 1,000 ML IV.CONT SCH (15:08)
--- NOTE | 2018-05-30 15:08 | US ---
EXAM DATE: 05/30/2018 3:04 PM EST AGE/SEX: 87 years / Female INDICATIONS: Increased lab values. CLINICAL DATA: This is the patient's initial encounter. Patient reports that signs and symptoms have been present for 1 day and indicates a pain score of 0/10. MEDICAL/SURGICAL HISTORY: Diabetes. High cholesterol. Stomach cancer. Liver disease. . Left ma stectomy. [place] [facility], 09/24/2015. . MEASUREMENTS: Right Kidney:__9.8 x 5.6 x 4.7 cm Left Kidney:__8.8 x 5.4 x 5.2 cm FINDINGS: Right Kidney: Increased echotexture. No mass or hydronephrosis. Left Kidney: Increased echotexture. No mass or hydronephrosis. Bladder: Within normal limits given the degree of distension. Other: None. CONCLUSION: 1. Echogenic kidneys without evidence of hydronephrosis or solid mass. Electronically signed by: Manuel Rasmussen MD 05/30/2018 3:07 PM EST
[2018-05-30] MEDS ORDERED: PEG 3350/E-Lyte Soln 4000 ML Bottle PO ONE (17:00)
[2018-05-30 21:09] LABS: Creatinine,Urine Random 16 mg/dL (27-300)
[2018-05-31] MEDS: Pantoprazole Inj 40 MG Vial IV.PUSH SCH ×2 (06:06→17:23)
[2018-05-31 06:15] LABS: Baso % (Auto) 0.5 % (0.0-2.0); Eos # (Auto) 0.1 th/mm3 (0.0-0.4); Hematocrit 23.9 % (35.0-46.0); Hemoglobin 8.1 gm/dL (11.6-15.3); Lymph # (Auto) 0.5 th/mm3 (1.0-4.8); Mean Corpuscular Hemoglobin 32.4 pg (27.0-34.0); Mean Corpuscular Volume 95.5 fL (80.0-100.0); Mean Platelet Volume 7.7 fL (7.0-11.0); Mono # (Auto) 0.2 th/mm3 (0.0-0.9); Mono % (Auto) 6.6 % (0.0-8.0); Neut # (Auto) 2.2 th/mm3 (1.8-7.7); Neut % (Auto) 74.9 % (16.0-70.0); Platelet Count 37 th/mm3 (150-450); Red Cell Distribution Width 16.1 % (11.6-17.2)
[2018-05-31 06:18] LABS: Potassium 4.4 meq/L (3.5-5.1)
[2018-05-31 06:25] LABS: Albumin 2.3 g/dL (3.4-5.0); Calcium 7.5 mg/dL (8.5-10.1)
[2018-05-31 06:43] LABS: Platelet Morphology Normal (Normal)
[2018-05-31 06:49] LABS: Phosphorus 3.1 mg/dL (2.5-4.9)
[2018-05-31] MEDS: Insulin NovoLOG Aspart Correctional Sugar Inj SQ SCH ×4 (07:52→21:37)
[2018-05-31] MEDS: rifAXIMin 550 MG Tablet PO SCH (09:09)
--- NOTE | 2018-05-31 10:15 | P.PNIM ---
Subjective Interval history: Patient is lying down in bed. She complains of on and off abdominal pain. She does not have any other complaints this morning. Physical Exam Vital signs: Vital Signs 05/30/18 12:00 05/30/18 16:00 05/30/18 20:00 Temperature 96.8 F L 96.8 F L 97.1 F L Pulse Rate 53 L 57 L 58 L Respiratory Rate 17 17 20 Blood Pressure 130/57 L 154/57 H 161/68 H Pulse Oximetry 94 L 93 L 93 L 05/31/18 00:00 05/31/18 08:00 05/31/18 08:44 Temperature 97.1 F L 97.6 F Pulse Rate 69 79 Respiratory Rate 20 18 Blood Pressure 139/56 L 155/70 H Pulse Oximetry 94 L 92 L 94 L Intake & Output 05/30/18 05/31/18 05/31/18 18:59 06:59 18:59 Output Total 1250 / 1250 Balance -1250 / -1250 Weight 72.3 kg Output: Urine 1250 / 1250 Other: # Voids 2 Date of Last Bowel Movement 05/29/18 05/30/18 # Bowel Movements 2 Narrative: General patient complains of mild abdominal pain that is on and off HEENT extraocular movements are intact, clear oropharyngeal mucosa, nasal cannula in place. Cardiovascular S1-S2 audible Respiratory clear to auscultation bilaterally Abdomen soft, nontender, nondistended, normal bowel sounds, no abdominal pain Extremities no edema 2+ distal pulses in bilateral upper and lower extremities Neuro patient moves all 4 extremities and sensation is intact bilaterally. Patient is alert and oriented x3. - Urinary Catheter Management Straight Cath placed during this visit: yes, but has since been removed by the nurse Reason for continuing: Not indwelling catheter Insertion date: 05/20/18 Insertion time: 18:00 Removal date: 05/20/18 Removal time: 18:01 Results - Labs CBC & Chem 7: 05/31/18 05:40 05/31/18 05:40 Laboratory Results - last 24 hr 05/30/18 05/30/18 05/30/18 06:00 11:39 16:10 CBC w Diff WBC RBC Hgb Hct MCV MCH MCHC RDW Plt Count MPV Neut % (Auto) Lymph % (Auto) [place] % (Auto) Eos % (Auto) Baso % (Auto) Neut # (Auto) Lymph # (Auto) [place] # (Auto) Eos # (Auto) Baso # (Auto) WBC Differential Diff Scan Differential Comment Platelet Estimate Platelet Morphology Sodium 140 Potassium 4.7 Chloride 105 Carbon Dioxide 25.1 Anion Gap 10 BUN 61 H Creatinine 1.90 H Estimated GFR 25 L POC Glucose 122 H Random Glucose 96 Calcium 7.7 L Phosphorus Magnesium 3.0 H Albumin Urine Eosinophils None seen Urine Osmolality Ur Random Creatinine Ur Random Sodium 05/30/18 05/30/18 05/30/18 16:10 16:10 16:29 CBC w Diff WBC RBC Hgb Hct MCV MCH MCHC RDW Plt Count MPV Neut % (Auto) Lymph % (Auto) [place] % (Auto) Eos % (Auto) Baso % (Auto) Neut # (Auto) Lymph # (Auto) [place] # (Auto) Eos # (Auto) Baso # (Auto) WBC Differential Diff Scan Differential Comment Platelet Estimate Platelet Morphology Sodium Potassium Chloride Carbon Dioxide Anion Gap BUN Creatinine Estimated GFR POC Glucose 110 Random Glucose Calcium Phosphorus Magnesium Albumin Urine Eosinophils Urine Osmolality 234 L Ur Random Creatinine 16 L Ur Random Sodium 63 05/30/18 05/31/18 05/31/18 20:17 05:40 05:40 CBC w Diff Slide review pending WBC 3.0 L RBC 2.50 L Hgb 8.1 L Hct 23.9 L MCV 95.5 MCH 32.4 MCHC 34.0 RDW 16.1 Plt Count 37 L D MPV 7.7 Neut % (Auto) 74.9 H Lymph % (Auto) 15.0 [place] % (Auto) 6.6 Eos % (Auto) 3.0 Baso % (Auto) 0.5 Neut # (Auto) 2.2 Lymph # (Auto) 0.5 L [place] # (Auto) 0.2 Eos # (Auto) 0.1 Baso # (Auto) 0.0 WBC Differential . Diff Scan Auto diff confirmed Differential Comment . Platelet Estimate Low L Platelet Morphology Normal Sodium 143 Potassium 4.4 Chloride 107 Carbon Dioxide 26.0 Anion Gap 10 BUN 48 H Creatinine 1.50 H Estimated GFR 33 L POC Glucose 175 H Random Glucose 109 H Calcium 7.5 L Phosphorus 3.1 Magnesium Albumin 2.3 L Urine Eosinophils Urine Osmolality Ur Random Creatinine Ur Random Sodium - Imaging Impressions Abdomen/Bladder Ultrasound 05/30/18 00:00 CONCLUSION: 1. Echogenic kidneys without evidence of hydronephrosis or solid mass. - Procedures See above. Assessment and Plan - Assessment (1) UTI (urinary tract infection) Code(s): N39.0 - Urinary tract infection, site not specified Status: Acute (2) HTN (hypertension) Code(s): I10 - Essential (primary) hypertension Status: Acute (3) Physical deconditioning Code(s): R53.81 - Other malaise Status: Acute - Plan This patient is an 87-year-old female with a diagnosis of hyperlipidemia, diabetes, stomach cancer status post resection in the past. The patient presented with complaints of 1 week history of weakness. She was found to have a urinary tract infection and admitted for treatment. 1. Normocytic anemia with possible GI bleed. Patient had a significant drop in her hemoglobin since admission. She has been having black stools over the past couple days. GI consulted, prep was initiated yesterday for possible EGD and colonoscopy which will likely be done today. Currently on IV Protonix. We will follow-up with GI after the colonoscopy and EGD. Continue to monitor H&H 2. Acute kidney injury likely prerenal Patient serum creatinine has improved to 1.5 after the initiation of gentle IV fluid hydration. Nephrology consulted, appreciate their recommendations. Patient does have a history of cirrhosis. We will continue to hold Lasix for today. We will follow-up a.m. labs 3. Thrombocytopenia Patient's platelet count is 37 today. This could possibly be due to the patient 's liver disease. Repeat platelet count ordered to evaluate for possible clumping and confirm the platelet count. We will also order 1 unit of platelets as the patient is scheduled for an EGD today. We will follow-up a.m. labs. 3. Proteus UTI Patient was treated for her urinary tract infection. She completed her antibiotic course while in house. 4. Acute hypoxic respiratory failure Patient is currently on room air without any complaints of shortness of breath. 5. Diabetes mellitus Continue insulin sliding scale. Diabetic diet 6. History of cirrhosis Continue rifaximin, p.o. Lasix, nadolol. No pharmacotherapy for DVT prophylaxis the patient is currently anemic, concern for possible GI bleed.
[2018-05-31] MEDS ORDERED: Sodium Chlor 0.9% Inj 250 ML IV.SIG SCH (11:00)
[2018-05-31] MEDS ORDERED: Metoprolol Tartrate 25 MG Tablet PO ONE (12:48)
[2018-05-31] MEDS ORDERED: Chlorhexidine Gluconate 2% 1 Pack (2 Cloths) TOPICAL ONE (12:48)
[2018-05-31] MEDS ORDERED: Sodium Chlor 0.9% Inj 500 ML IV.SIG SCH (13:00)
--- NOTE | 2018-05-31 14:24 | P.PNNP ---
Subjective Interval history: Patient seen in AM, was getting prep for GI work up, no SOB. Physical Exam Vital signs: Vital Signs 05/30/18 16:00 05/30/18 20:00 05/31/18 00:00 Temperature 96.8 F L 97.1 F L 97.1 F L Pulse Rate 57 L 58 L 69 Respiratory Rate 17 20 20 Blood Pressure 154/57 H 161/68 H 139/56 L Pulse Oximetry 93 L 93 L 94 L 05/31/18 08:00 05/31/18 08:44 05/31/18 11:47 Temperature 97.6 F 97.7 F Pulse Rate 79 70 Respiratory Rate 18 18 Blood Pressure 155/70 H 134/66 Pulse Oximetry 92 L 94 L 95 05/31/18 12:31 05/31/18 13:30 05/31/18 13:47 Temperature 98.0 F 98.0 F 97.9 F Pulse Rate 72 72 75 Respiratory Rate 20 20 18 Blood Pressure 148/74 H 148/74 H 159/64 H Pulse Oximetry 95 95 92 L 05/31/18 14:08 Temperature Pulse Rate 76 Respiratory Rate 18 Blood Pressure 165/66 H Pulse Oximetry Intake & Output 05/30/18 05/31/18 05/31/18 18:59 06:59 18:59 Intake Total Output Total 1250 / 1250 Balance -1250 / -1250 Weight 72.3 kg Intake: Intake (Blood Product) Amt Plt Pheresis B Leukoreduced Unit [id number] Output: Urine 1250 / 1250 Other: # Voids 2 Date of Last Bowel Movement 05/29/18 05/30/18 # Bowel Movements 2 Narrative: General patient is alert, not in distress. HEENT extraocular movements are intact, clear oropharyngeal mucosa, nasal cannula in place. Cardiovascular S1-S2 audible Respiratory clear to auscultation bilaterally Abdomen soft, nontender, nondistended, normal bowel sounds, no abdominal pain Extremities no edema 2+ distal pulses in bilateral upper and lower extremities Neuro patient moves all 4 extremities and sensation is intact bilaterally. Patient is alert and moving all extremities. - Urinary Catheter Management Straight Cath placed during this visit: yes, but has since been removed by the nurse Reason for continuing: Not indwelling catheter Insertion date: 05/20/18 Insertion time: 18:00 Removal date: 05/20/18 Removal time: 18:01 Assessment and Plan - Assessment (1) Acute kidney injury Code(s): N17.9 - Acute kidney failure, unspecified Status: Acute Plan: Patient was admitted with Anemia and possible GI bleeding. Patient has ASHIA, possibly has an element of chronic kidney disease also. Most likely has an element of pre renal or ATN. Urine sodium not low, and the urine osmolality is not high. Start gentle IVF. Renal U/S result noted. Creatinine is slightly better, 1.6. Continue gentle hydration. Going for GI work up. Follow the urine out put and BMP. (2) Diabetes Code(s): E11.9 - Type 2 diabetes mellitus without complications Status: Acute Plan: Well controlled. Recommend to maintain BS between 140 mg/dl to 180 mg/dl. (3) Gastrointestinal bleed Code(s): K92.2 - Gastrointestinal hemorrhage, unspecified Status: Acute Plan: NPO EGD and colonoscopy planned for tomorrow.
--- NOTE | 2018-05-31 15:04 | GIPROC ---
[address], [address] EGD PROCEDURE REPORT EXAM DATE: 05/31/2018 PATIENT NAME: Luis Carlos Whitehead MR #: [id number] BIRTHDATE: 1930 ATTENDING: Judy Flood MD ORDER #: [id number] [facility] LIAISON: Cirilo Herrera and Kelli Velázquez STATUS: inpatient INDICATIONS: The patient is a 87 yr old female here for an EGD due to anemia, cirrhosis PROCEDURE PERFORMED: EGD w/ biopsy MEDICATIONS: None and Per Anesthesia. TOPICAL ANESTHETIC: none CONSENT: The patient understands the risks and benefits of the procedure and understands that these risks include, but are not limited to: sedation, allergic reaction, infection, perforation and/or bleeding. Alternative means of evaluation and treatment include, among others: physical exam, x-rays, and/or surgical intervention. The patient elects to proceed with this endoscopic procedure. medical equipment was checked for proper function. Hand hygiene and appropriate measures for infection prevention was taken. After the risks, benefits and alternatives of the procedure were thoroughly explained, Informed consent was verified, confirmed and timeout was successfully executed by the treatment team. The patient was anesthetized with topical anesthesia and the Pentax [id number] endoscope was introduced through the mouth and advanced to the second portion of the duodenum. Retroflexed views revealed a hiatal hernia The gastroscope was then slowly withdrawn and removed. Duodenitis second portion-biopsy severe esophagitis distal esophagus-biopsy esophageal varices -grade 1. ADVERSE EVENTS: There were no complications. IMPRESSIONS: 1. Duodenitis second portion-biopsy severe esophagitis distal esophagus-biopsy esophageal varices -grade 1 2. Retroflexed views revealed a hiatal hernia RECOMMENDATIONS: 1. Await biopsy results. Biopsy results will not be ready for 7-10 days. If you don't hear from us in two weeks, call our office for biopsy results. 2. Anti-reflux regimen 3. Continue PPI PATIENT CONDITION: stable DISPOSITION: Inpatient REPEAT EXAM: Return 3 months EGD Judy Flood MD eSigned: Judy Flood MD 05/31/2018 3:03 PM cc:
--- NOTE | 2018-05-31 15:08 | GIPROC ---
[facility] [address] [place] [address], [id number] COLONOSCOPY PROCEDURE REPORT EXAM DATE: 05/31/2018 PATIENT NAME: Luis Carlos Whitehead MR #: [id number] BIRTHDATE: 1930 ENDOSCOPIST: Judy Flood MD ORDER #: [id number] LEAD PAINTER: Cirilo Herrera and Kelli Velázquez STATUS: inpatient INDICATIONS: The patient is a 87 yr old female here for a colonoscopy due to anemia, gi bleeding, cirrhosis, history of colon cancer PROCEDURE PERFORMED: Colonoscopy, diagnostic MEDICATIONS: None and Per Anesthesia. PREP QUALITY: good PREP TYPE:Other: ESTIMATED BLOOD LOSS: None CONSENT: The patient understands the risks and benefits of the procedure and understands that these risks include, but are not limited to: sedation, allergic reaction, infection, perforation and/or bleeding. Alternative means of evaluation and treatment include, among others: physical exam, x-rays, and/or surgical intervention. The patient elects to proceed with this endoscopic procedure. medical equipment was checked for proper function. Hand hygiene and appropriate measures for infection prevention was taken. After the risks, benefits and alternatives of the procedure were thoroughly explained, Informed consent was verified, confirmed and timeout was successfully executed by the treatment team. A digital exam revealed external hemorrhoids The New [id number] (Std Gastro) endoscope was introduced through the anus and advanced to the cecum, which was identified by both the appendix and ileocecal valve. The instrument was then slowly withdrawn as the colon was fully examined. COLON FINDINGS: Diverticulosis sigmoid,descending surgical changed in trnasverse. Retroflexed views revealed internal hemorrhoids and Retroflexed views revealed medium internal hemorrhoids The scope was then completely withdrawn from the patient and the procedure terminated. PROCEDURE WITHDRAWAL TIME:6minutes ADVERSE EVENTS: There were no complications. IMPRESSIONS: 1. Diverticulosis sigmoid,descending surgical changed in trnasverse 2. Retroflexed views revealed internal hemorrhoids 3. Retroflexed views revealed medium internal hemorrhoids 4. Revealed external hemorrhoids RECOMMENDATIONS: 1. Benefiber 2 tsp daily 2. Probiotics from any C or health food store RECALL: Return 1 year Colonoscopy Judy Flood MD eSigned: Judy Flood MD 05/31/2018 3:08 PM cc:
[2018-05-31] MEDS: Sod Chloride 0.9% Inj 1,000 ML IV.CONT SCH (18:34)
[2018-06-01] MEDS: Pantoprazole Inj 40 MG Vial IV.PUSH SCH (06:04)
[2018-06-01 06:36] LABS: Baso % (Auto) 0.4 % (0.0-2.0); Eos # (Auto) 0.1 th/mm3 (0.0-0.4); Eos % (Auto) 3.8 % (0.0-4.0); Hematocrit 21.8 % (35.0-46.0); Hemoglobin 7.3 gm/dL (11.6-15.3); Lymph # (Auto) 0.7 th/mm3 (1.0-4.8); Lymph % (Auto) 18.1 % (9.0-44.0); Mean Corpuscular HGB Conc 33.6 % (32.0-36.0); Mean Corpuscular Volume 95.3 fL (80.0-100.0); Mono # (Auto) 0.3 th/mm3 (0.0-0.9); Mono % (Auto) 7.6 % (0.0-8.0); Neut # (Auto) 2.6 th/mm3 (1.8-7.7); Neut % (Auto) 70.1 % (16.0-70.0); Platelet Count 88 th/mm3 (150-450); Red Blood Count 2.29 mil/mm3 (4.00-5.30); White Blood Count 3.7 th/mm3 (4.0-11.0)
[2018-06-01 06:52] LABS: Potassium 4.1 meq/L (3.5-5.1)
[2018-06-01 07:05] LABS: Calcium 7.4 mg/dL (8.5-10.1); Carbon Dioxide 25.6 meq/L (21.0-32.0); Magnesium 2.2 mg/dL (1.5-2.5)
[2018-06-01 07:47] LABS: Platelet Morphology Normal (Normal)
[2018-06-01 07:53] LABS: Total Protein 5.6 g/dL (6.4-8.2)
[2018-06-01] MEDS: Insulin NovoLOG Aspart Correctional Sugar Inj SQ SCH ×2 (08:31→12:36)
[2018-06-01] MEDS: rifAXIMin 550 MG Tablet PO SCH (08:51)
--- NOTE | 2018-06-01 10:30 | P.DS ---
Date of admission: 05/23/18 16:03 Primary care physician: UNKNOWN Anticipated date of discharge: 05/27/18 Brief History from admission: 87-year-old female with a history of diabetes, hyperlipidemia, stomach cancer status post resection in the past, who presents with a one-week history of progressively worsening nonfocal weakness. She denies any chest pain, shortness breath, nausea vomiting. She denies any pain. Denies any fevers chills. Denies any dysuria. DS: Medications - Discharge Medications Prescriptions: pantoprazole 40 mg PO BID #60 tab tramadol [Ultram] 50 mg PO Q6H #8 tab DS: Summary Hospital Course: Patient was initially admitted for generalized weakness, started antibiotics for UTI which ended up being Proteus mirabilis. She develops some mild hypoxic respiratory failure secondary to pulmonary edema secondary to liver disease, improved with diuresis. Was noted to have positive guaiac in light of her anemia, thus GI performed colonoscopy which showed hemorrhoids and diverticulosis, EGD showed esophagitis and duodenitis, biopsies were performed. There were some varices that were nonbleeding. Also was given gentle IVFs per nephrology for acute kidney injury. Patient's blood count remained stable but borderline, was offered further blood transfusions but she declined due to sabianism reasons. She was counseled upon the medical risks and benefits regarding the decision to accept as well as reject the transfusions, and she maintained refusal. Patient's overall blood status remained stable. She has met maximum benefit from hospitalization. - Time Spent with Patient Total time spent providing and/or coordinating discharge services: Less than 30 minutes - Quality: VTE Deep Vein Thrombosis/Pulmonary Embolism Present on Admission: No Exam Vital signs: Vital Signs 05/31/18 11:47 05/31/18 12:31 05/31/18 13:30 Temperature 97.7 F 98.0 F 98.0 F Pulse Rate 70 72 72 Respiratory Rate 18 20 20 Blood Pressure 134/66 148/74 H 148/74 H Pulse Oximetry 95 95 95 05/31/18 13:47 05/31/18 14:08 05/31/18 15:05 Temperature 97.9 F 97.6 F Pulse Rate 75 76 78 Respiratory Rate 18 18 14 Blood Pressure 159/64 H 165/66 H 123/50 L Pulse Oximetry 92 L 94 L 05/31/18 15:15 05/31/18 15:30 05/31/18 15:58 Temperature 97.1 F L Pulse Rate 76 75 77 Respiratory Rate 14 14 18 Blood Pressure 134/54 L 123/47 L 175/71 H Pulse Oximetry 97 100 95 05/31/18 18:21 05/31/18 20:00 05/31/18 20:02 Temperature 98.5 F Pulse Rate 78 Respiratory Rate 18 Blood Pressure 128/78 180/74 H Pulse Oximetry 93 L 93 L 06/01/18 00:00 06/01/18 08:00 06/01/18 08:08 Temperature 97.2 F L 96.8 F L Pulse Rate 74 64 Respiratory Rate 18 18 Blood Pressure 134/66 142/65 H Pulse Oximetry 93 L 92 L 91 L Intake & Output 05/31/18 06/01/18 06/01/18 18:59 06:59 18:59 Intake Total 1702 / 1702 90 / 90 Output Total 600 / 600 Balance 1702 / 1702 -510 / -510 Weight 67.8 kg Intake: IV 1000 / 1000 NS Inj 1,000 ML @ 50 mls/hr IV. 1000 / 1000 CONT .Q20H DEONNA Rx#:[id number] Oral 90 / 90 Anesthesia Amount 500 / 500 Intake (Blood Product) Amt Plt Pheresis B Leukoreduced Unit [id number] Output: Urine 450 / 450 Stool 150 / 150 Other: # Voids 2 Date of Last Bowel Movement 05/31/18 05/31/18 Narrative: Heart sounds regular rate and rhythm, no murmurs Clear lungs bilaterally, unlabored breathing A few scattered ecchymoses which look like they are healing Mild pallor diffusely 3/5 proximal hip flexor strength bilaterally Results Procedures completed during hospitalization: See above. Pending studies at discharge: Pending at discharge 05/31/18 08:02 Surgical [PTH] Routine Labs on day of discharge: Labs from last 24 hours 06/01/18 06/01/18 06/01/18 07:59 05:35 05:35 CBC w Diff Slide review pending WBC 3.7 L RBC 2.29 L Hgb 7.3 L Hct 21.8 L MCV 95.3 MCH 32.0 MCHC 33.6 RDW 16.0 Plt Count 88 L MPV 8.0 Neut % (Auto) 70.1 H Lymph % (Auto) 18.1 Wagoner % (Auto) 7.6 Eos % (Auto) 3.8 Baso % (Auto) 0.4 Neut # (Auto) 2.6 Lymph # (Auto) 0.7 L [place]agoner # (Auto) 0.3 Eos # (Auto) 0.1 Baso # (Auto) 0.0 WBC Differential . Diff Scan Auto diff confirmed Differential Comment . Platelet Estimate Low L Platelet Morphology Normal Sodium 141 Potassium 4.1 Chloride 107 Carbon Dioxide 25.6 Anion Gap 8 BUN 35 H Creatinine 1.30 H Estimated GFR 39 L POC Glucose 111 H Random Glucose 94 Calcium 7.4 L* Prot Corrected Calcium 8.2 L Magnesium 2.2 D Total Protein 5.6 L Bld Prod Order Comment 05/31/18 05/31/18 05/31/18 20:43 20:25 17:02 CBC w Diff WBC RBC Hgb Hct MCV MCH MCHC RDW Plt Count 92 L D MPV Neut % (Auto) Lymph % (Auto) Wagoner % (Auto) Eos % (Auto) Baso % (Auto) Neut # (Auto) Lymph # (Auto) [place]agoner # (Auto) Eos # (Auto) Baso # (Auto) WBC Differential Diff Scan Differential Comment Platelet Estimate Platelet Morphology Sodium Potassium Chloride Carbon Dioxide Anion Gap BUN Creatinine Estimated GFR POC Glucose 177 H 131 H Random Glucose Calcium Prot Corrected Calcium Magnesium Total Protein Bld Prod Order Comment 05/31/18 05/31/18 11:43 10:50 CBC w Diff WBC RBC Hgb Hct MCV MCH MCHC RDW Plt Count MPV Neut % (Auto) Lymph % (Auto) [place]agoner % (Auto) Eos % (Auto) Baso % (Auto) Neut # (Auto) Lymph # (Auto) [place]agoner # (Auto) Eos # (Auto) Baso # (Auto) WBC Differential Diff Scan Differential Comment Platelet Estimate Platelet Morphology Sodium Potassium Chloride Carbon Dioxide Anion Gap BUN Creatinine Estimated GFR POC Glucose 141 H Random Glucose Calcium Prot Corrected Calcium Magnesium Total Protein Bld Prod Order Comment - Impressions ITS Impressions Chest X-Ray 05/27/18 00:00 CONCLUSION: Mild bibasilar pleural-parenchymal opacities Abdomen/Bladder Ultrasound 05/30/18 00:00 CONCLUSION: 1. Echogenic kidneys without evidence of hydronephrosis or solid mass. Discharge Plan - Discharge Disposition Patient Disposition: Discharge to SNF - Discharge Condition Condition: Stable - Discharge Order Discharge Orders: Discharge Order (Routine); Ordered 06/01/18 Ordered By: Jose De Jesus - Discharge Details Anticipated Discharge Date: 05/27/18 - Physicians Team Primary Care Provider: UNKNOWN, Attending Provider: Jose De Jesus Other Providers: [facility] ; Chauncey Askwe MD ; Tri Houston MD
[2018-06-01] MEDS ORDERED: Sodium Chlor 0.9% Inj 250 ML IV.SIG SCH (11:00)
[2018-06-01] MEDS: Sod Chloride 0.9% Inj 1,000 ML IV.CONT SCH (13:00)
[2018-06-01] MEDS ORDERED: Nadolol 20 MG Tablet PO ONE (13:00)
--- NOTE | 2018-06-01 15:50 | P.PNNP ---
Subjective Interval history: Patient seen in AM, alert, no SOB. Physical Exam Vital signs: Vital Signs 05/31/18 15:58 05/31/18 18:21 05/31/18 20:00 Temperature 97.1 F L 98.5 F Pulse Rate 77 78 Respiratory Rate 18 18 Blood Pressure 175/71 H 128/78 180/74 H Pulse Oximetry 95 93 L 05/31/18 20:02 06/01/18 00:00 06/01/18 08:00 Temperature 97.2 F L 96.8 F L Pulse Rate 74 64 Respiratory Rate 18 18 Blood Pressure 134/66 142/65 H Pulse Oximetry 93 L 93 L 92 L 06/01/18 08:08 06/01/18 12:00 Temperature 97.2 F L Pulse Rate 72 Respiratory Rate 17 Blood Pressure 192/81 H Pulse Oximetry 91 L 92 L Intake & Output 05/31/18 06/01/18 06/01/18 18:59 06:59 18:59 Intake Total 1702 / 1702 90 / 90 Output Total 600 / 600 Balance 1702 / 1702 -510 / -510 Weight 67.8 kg Intake: IV 1000 / 1000 NS Inj 1,000 ML @ 50 mls/hr IV. 1000 / 1000 CONT .Q20H DEONNA Rx#:[id number] Oral 90 / 90 Anesthesia Amount 500 / 500 Intake (Blood Product) Amt Plt Pheresis B Leukoreduced Unit [id number] Output: Urine 450 / 450 Stool 150 / 150 Other: # Voids 2 Date of Last Bowel Movement 05/31/18 05/31/18 05/31/18 Narrative: Heart sounds regular rate and rhythm, no murmurs Clear lungs bilaterally, unlabored breathing A few scattered ecchymoses which look like they are healing Mild pallor diffusely 3/5 proximal hip flexor strength bilaterally - Urinary Catheter Management Straight Cath placed during this visit: yes, but has since been removed by the nurse Reason for continuing: Not indwelling catheter Insertion date: 05/20/18 Insertion time: 18:00 Removal date: 05/20/18 Removal time: 18:01 Assessment and Plan - Assessment (1) Acute kidney injury Code(s): N17.9 - Acute kidney failure, unspecified Status: Acute Plan: Patient was admitted with Anemia and possible GI bleeding. Patient has ASHIA, possibly has an element of chronic kidney disease also. Most likely has an element of pre renal or ATN. Urine sodium not low, and the urine osmolality is not high. Start gentle IVF. Renal U/S result noted. Creatinine continue to improve, now 1.3. Encourage oral intake. EGD results noted. For D/C, to follow with her PCP. (2) Diabetes Code(s): E11.9 - Type 2 diabetes mellitus without complications Status: Acute Plan: Well controlled. Recommend to maintain BS between 140 mg/dl to 180 mg/dl. (3) Gastrointestinal bleed Code(s): K92.2 - Gastrointestinal hemorrhage, unspecified Status: Acute Plan: NPO EGD and colonoscopy planned for tomorrow.
== END 2018-06-01 14:46 ==
LOC: NEPC 17:23 → NEDA 17:23 → NEPHCDU 22:04 → PH3 05-25 13:23
PROVIDERS: ADMIT Hospitalist; ATTEND Hospitalist
PROC: COLONOS (2018-05-31 14:26)
PROC: PANENDO (2018-05-31 14:26)